=== PATIENT | male | born 1965 | race Caucasian/White ===

== ENCOUNTER 2019-08-14 08:31 | Emergency (ER) | payer MEDICARE, MEDICAID, SELFPAY ==
--- NOTE | ~2019-08-14 | XR_ITS ---
XR hip RT 2V w AP pelvis 08/14/2019 09:10 INDICATION: Right hip pain after fall PROCEDURE: AP pelvis and 2 views right hip COMPARISON: No prior studies for comparison. FINDINGS: Fracture, dislocation or subluxation is not identified. The soft tissues appear within norm al limits. No foreign bodies are identified. There is lumbar spondylosis. IMPRESSION: 1: NO ACUTE BONE OR JOINT ABNORMALITY IDENTIFIED. Reviewed, dictated and finalized at location A.
--- NOTE | ~2019-08-14 | CT_ITS ---
EXAMINATION: CT abd pelvis lumbar w con INDICATION: Right hip pain TECHNIQUE: Computed tomographic images of the abdomen, pelvis, and lumbar spine were obtained after t he administration of 100 cc of Omnipaque 350 intravenous contrast. The dose-length product (DLP) was 1617.81 mGy-cm. Automated exposure control and iterative reconstruction technique were employed. COMPARISON: None FINDINGS: Abdomen/pelvis: Minimal dependent atelectasis is present in the lung bases. The heart size is normal. The liver, spleen, pancreas, gallbladder, and adrenal glands are normal. The kidneys are unremarkabl e. No pathologically enlarged abdominal or pelvic lymph nodes are identified. There is no free intrap eritoneal gas or evidence of bowel obstruction. The appendix is normal. A moderate volume of colonic stool is present. Lumbar spine: There is no fracture. There is severe loss of intervertebral disc space height at L3-4 and L4-5 and moderate loss of intervertebral disc space height at L2-3 and L4-5. The vertebral body h eights and alignment are maintained. There is moderate neural foraminal stenosis on the right at L2-3 and L3-4. IMPRESSION: 1. No CT correlate for the patient's symptoms. 2. Severe lumbar spondylosis without acute findings. Reviewed, dictated and finalized at location B.
[2019-08-14 08:32] VITALS: BP 158/94; PULSE 97; RESP 16; TEMP 36.9; O2SAT 99
--- NOTE | 2019-08-14 08:39 | ED.LOWEXIN ---
HPI - Extremity Injury (Lower) General Chief Complaint: Extremity Injury, Lower Stated Complaint: BACK PAIN Time Seen by Provider: 08/14/19 08:38 Source: patient and RN notes reviewed Mode of arrival: EMS Limitations: no limitations History of Present Illness HPI Narrative: Pt is a 54 y/o male who presents to the ED via EMS with c/o rt posterior hip pain starting several days ago. He notes that he believes he may have tripped while getting out of his car 3-5 days ago, but states that he is unsure of when exactly the injury may have happened. Pt notes that he has had pain in his rt buttock, which radiates down his posterior rt thigh for the past several days. He states that he was evaluated by his chiropractor 2 days ago for his symptoms, and notes that he was advised to ice his rt hip and thigh. Pt states that he has been able to walk since his pain began, noting that he was able to make it down several flights of stairs earlier this morning. He currently denies any rt knee pain, calf pain, dysuria, hematuria, headache, vision changes, vomiting, CP, or fever. MD complaint: hip injury Onset (ago): unknown Injury: Right: hip (rt posterior hip) Type of Injury: unknown Context: fall Other symptoms: other (rt posterior hip pain radiating into rt posterior thigh) Related Data Home Medications Medication Instructions Recorded Confirmed buspirone 30 mg PO TID 08/14/19 clozapine 300 mg 08/14/19 divalproex 1,000 mg PO DAILY 08/14/19 simvastatin 20 mg PO DAILY 08/14/19 Allergies Allergy/AdvReac Type Severity Reaction Status Date / Time nortriptyline Allergy Unknown Vomiting Verified 08/14/19 08:38 Review of Systems Review of Systems: Narrative: CONSTITUTIONAL: Denies fever, chills, or sweats. EYES: Denies visual changes, redness, or discharge. CARDIOVASCULAR: Denies chest pain, palpitations, or edema. GASTROINTESTINAL: Denies abdominal pain, nausea, vomiting, or diarrhea. GENITOURINARY: Denies dysuria or hematuria. MUSCULOSKELETAL: Reports rt posterior hip pain radiating into rt posterior thigh. Denies rt knee pain or calf pain. NEUROLOGIC: Denies headache, numbness, or weakness. All systems reviewed & are unremarkable except as noted in HPI and below PMFSH Past Medical History Medical History Diabetes Dyslipidemia HTN (hypertension) Schizoaffective disorder Surgical History Surgical History Surgical history unknown Social History Social History Smoking status: Never smoker Exam Narrative: Exam Narrative: GENERAL: Well-appearing, obese, and in no acute distress. HEAD: Normocephalic, atraumatic. EYES: PERRLA and EOMI. ENT: Nares clear, no rhinorrhea or epistaxis. Mucous membranes moist. NECK: Supple. CHEST: Clear to auscultation. No respiratory distress. HEART: Regular rate and rhythm. No murmur heard. Normal peripheral pulses (Popliteal pulses are 2+). ABDOMEN: Soft, nontender, nondistended, normal active bowel sounds. EXTREMITIES: No edema. Tenderness over rt hip. Pain with external rotation of rt hip. No bruising or rash over rt hip. Positive right sided straight leg raise. Intact sensation distally. DP pulse 2+. Intact FHL/EHL right lower extremity. SKIN: Warm, dry, no rash. NEURO: No focal deficits. Alert and oriented. EOMs intact without nystagmus. No facial droop/asymmetry noted bilaterally. Grimace intact. Intact sensation in face. Hearing intact bilaterally. Shoulder shrug intact. Strength 5/5 bilateral upper extremities. Strength 5/5 bilateral lower extremities. Reflexes 2+ patellar. Patient is ambulatory, does require some guidance, but has no ataxia, is not falling, can ambulate independently. Course Vital Signs Vital signs: Vital Signs Temperature 36.9 C 08/14/19 08:32 Pulse Rate 97 08/14/19 08:32 Respiratory Rate 16 08/14/19 08:32 Blood Pressure 15
[2019-08-14 09:27] LABS: Basophils Percent Auto 0.6 % (0.2-1.2); Eosinophils Absolute Auto 0.2 K/mm3 (0-0.3); Eosinophils Percent Auto 2.3 % (0-4.4); Hematocrit 40.5 % (42.0-52.0); Hemoglobin 12.6 g/dL (14.0-18.0); Immature Granulocyte Absolute 0.02 K/mm3 (0.00-0.031); Immature Granulocyte Percent A 0.3 % (0-0.5); Lymphocytes Absolute Auto 1.18 K/mm3 (0.9-3.2); Lymphocytes Percent Auto 17.8 % (18.3-44.2); Mean Corpuscular HGB Conc 31.1 g/dl (32-36); Mean Corpuscular Hemoglobin 30.1 pg (26-34); Mean Corpuscular Volume 96.7 fl (80-100); Mean Platelet Volume 10.3 fl (7.4-10.4); Monocytes Absolute Auto 0.6 K/mm3 (0.1-0.6); Neutrophils Absolute Auto 4.6 K/mm3 (1.3-6.7); Platelet Count Result 155 k/mm3 (150-375); Red Blood Count 4.19 M/mm3 (4.6-6.20); Red Cell Distribution Width 13.6 % (11.5-14.5); White Blood Count 6.6 K/mm3 (4.5-10.0)
[2019-08-14 09:39] LABS: Blood Urea Nitrogen 29 mg/dL (9-20); Calcium 9.9 mg/dL (8.4-10.2); Carbon Dioxide 27 mmol/L (22-30); Chloride 107 mmol/L (98-107); Estimated CRCL calculation 60 ml/min; Estimated Glomerular Filt Rate 37; Glucose 135 mg/dL (75-110); Sodium 139 mmol/L (137-145)
[2019-08-14 09:41] LABS: Add Urine Microscopic? YES; Appearance Urine Clear (Clear); Bilirubin Urine Negative (Negative); Blood Urine Negative (Negative); Color Urine Yellow (Yellow); Glucose Urine UA Negative (Negative); Ketones Urine Negative (Negative); Leukocyte Esterase Ur Negative LEU/UL (Negative); Mucus Urine Rare /lpf; Nitrate Urine Negative (Negative); Protein Urine 1+ mg/dL (Negative); RBC Urine 0-2 /hpf (0-2); Specific Grav Ur 1.016 (1.001-1.035); Squamous Epithelial Cell Urine Rare /hpf (Few); WBC Urine 0-3 /hpf
[2019-08-14 09:48] LABS: CRP 8.9 mg/dL (<1.0)
--- NOTE | 2019-08-14 09:53 | PC.NURSE ---
Offered pt cleaned soapy rags to clean up. Pt declined. Encouraged pt to do it due to his odor of urine. Pt continued to decline
[2019-08-14 10:12] LABS: Erythrocyte Sedimentation Rate 62 mm/hr (0-20)
[2019-08-14 10:13] VITALS: BP 161/95; PULSE 84; RESP 16; O2SAT 99
[2019-08-14 11:15] VITALS: BP 158/105; PULSE 89; RESP 23; O2SAT 99
--- NOTE | 2019-08-14 11:24 | PC.NURSE ---
Pt attempted ambulation w 2 person assist, unsuccessful - EDP Dr Zapata aware.
[2019-08-14] MEDS: KETOROLAC 15 MG/ML VIAL (*BKC) IV PUSH (11:40)
[2019-08-14] MEDS: DIAZEPAM 5 MG TABLET PO (11:40)
[2019-08-14] MEDS: SODIUM CHLORIDE 0.9% IV 1,000 ML 999 ML IV CONT (11:43)
[2019-08-14 11:52] LABS: Creatine Kinase 246 U/L (55-170)
[2019-08-14] MEDS: LIDOCAINE 5% PATCH 1 PATCH TRANSDERM (12:01)
--- NOTE | 2019-08-14 12:05 | PC.NURSE ---
spoke with CONTRERAS Zapata who is requesting the pt attempt to ambulate again, I reminded CONTRERAS that pt had a difficult time attempting earlier and it took x2 staff members just to get his legs out of bed, and that pt was unable to ambulate. CONTREARS states she wants pt ambulated at this time, not to wait.
[2019-08-14 12:18] VITALS: BP 163/101; PULSE 96; RESP 17; O2SAT 97
--- NOTE | 2019-08-14 12:19 | PC.NURSE ---
Pt ambulated to RR w/ 2 person guided assist. Pt moved slowly and was able to get self in and out of stretcher.
[2019-08-14 13:28] VITALS: BP 150/97; PULSE 98; RESP 18; O2SAT 100
== END 2019-08-14 13:30 | disposition home or self-care (01) ==
PROVIDERS: Emergency Provider Emergency Medicine; PCP Emergency Medicine
DX: M54.31 Sciatica, right side (principal); E11.9 Type 2 diabetes mellitus without complications; E78.5 Hyperlipidemia, unspecified; I10 Essential (primary) hypertension; F25.9 Schizoaffective disorder, unspecified; M47.816 Spondylosis without myelopathy or radiculopathy, lumbar region
CPT/HCPCS: 36415; 72132; 73502; 73521; 74177; 80048; 81001; 82550; 85025; 85652; 86140; 96361; 96374; 99284; A9270; J1885; J7030; Q9967

== ENCOUNTER 2019-09-28 09:25 | Emergency (ER) | payer MEDICARE, MEDICAID, SELFPAY ==
[2019-09-28 09:39] VITALS: BP 93/48; PULSE 102; RESP 18; TEMP 36.7; O2SAT 96
--- NOTE | 2019-09-28 11:43 | ED.BACK ---
HPI - Back Pain/Injury General Chief Complaint: Back Pain/Injury Stated Complaint: worsening chronic back pain Time Seen by Provider: 09/28/19 11:09 History of Present Illness HPI Narrative: Patient presents per private car for low back pain and right sciatica. He has been treated for this for years. He said it was so bad that he could not get off the floor this morning when he woke up. He had to call EMS to help stand him up. His only medication right now is Tylenol which he finished. He said it did not help. He sees a chiropractor on a regular basis. He was referred to a surgeon, but could not get through the intake process. He has schizoaffective, and gets his disability for that. He is no longer on lithium. He is allergic to Pamelor. He lives with a roommate in an apartment. He drives. He speaks in really long sentences with an abnormal amount of minute detail, that is quite unnecessary for the interview. He is polite. MD elicited complaint: back pain Pertinent past history: prior back pain Onset (ago): year(s) Timing: intermittent Severity: moderate Pain scale (0-10): 6 Similar Symptoms Previously: Yes Location: lumbar spine Radiation: right upper leg Exacerbating factors: movement and other (Hurts worse with going from a laying or sitting position to standing.) Relieving factors: none Work related injury: No Related Data Home Medications Medication Instructions Recorded Confirmed buspirone 30 mg PO TID 08/14/19 clozapine 300 mg 08/14/19 divalproex 1,000 mg PO DAILY 08/14/19 simvastatin 20 mg PO DAILY 08/14/19 lisinopril 10 mg PO DAILY 09/28/19 Allergies Allergy/AdvReac Type Severity Reaction Status Date / Time nortriptyline Allergy Unknown Vomiting Verified 09/28/19 09:36 Review of Systems Review of Systems: Narrative: CONSTITUTIONAL: Denies fever, chills, or sweats. EYES: Denies visual changes, redness, or discharge. ENT: Denies rhinorrhea, congestion, sore throat, or otalgia. CARDIOVASCULAR: Denies chest pain, palpitations, or edema. RESPIRATORY: Denies cough or dyspnea. GASTROINTESTINAL: Denies abdominal pain, nausea, vomiting, or diarrhea. GENITOURINARY: Denies dysuria or hematuria. SKIN: Denies rash or itching. MUSCULOSKELETAL: Denies joint pain, or myalgia. NEUROLOGIC: Denies headache, numbness, or weakness. PSYCHIATRIC: Denies anxiety or depression. [facility] Past Medical History Medical History Diabetes Dyslipidemia HTN (hypertension) Schizoaffective disorder Surgical History Surgical History Surgical history unknown Social History Social History Smoking status: Never smoker Gender identity (if verbalized by the patient): Male Exam Narrative: Exam Narrative: GENERAL: Morbid obesity, slow-moving. No acute distress HEAD: Normocephalic, atraumatic. EYES: PERRLA and EOMI. ENT: Nares clear, no rhinorrhea or epistaxis. Mucous membranes moist. NECK: Supple. CHEST: Clear to auscultation. No respiratory distress. HEART: Regular rate and rhythm. No murmur heard. Normal peripheral pulses. ABDOMEN: Soft, nontender, nondistended, normal active bowel sounds. EXTREMITIES: No edema. SKIN: Warm, dry, no rash. NEURO: No focal deficits. Alert and oriented x3. Straight leg raising positive on the right. Reflexes slow. PSYCH: Normal mood and affect. Really long sentences. Course Vital Signs Vital signs: Vital Signs Temperature 98.1 F 09/28/19 09:39 Pulse Rate 102 H 09/28/19 09:39 Respiratory Rate 18 09/28/19 09:39 Blood Pressure 93/48 L 09/28/19 09:39 Pulse Oximetry 96 09/28/19 09:39 Temperature 98.1 F 09/28/19 09:39 Pulse Rate 102 H 09/28/19 09:39 Respiratory Rate 18 09/28/19 09:39 Blood Pressure 93/48 L 09/28/19 09:39 Pulse Oximetry 96 09/28/19 09:39 Discharge Plan Discharge Clinical Impres
[2019-09-28] MEDS: KETOROLAC (*BKC) 60 MG/2 ML VIAL 30 MG IM (11:46)
== END 2019-09-28 12:08 | disposition home or self-care (01) ==
PROVIDERS: Emergency Provider Emergency Medicine; PCP Emergency Medicine
DX: M54.16 Radiculopathy, lumbar region (principal); E11.9 Type 2 diabetes mellitus without complications; R78.5 Finding of other psychotropic drug in blood; I10 Essential (primary) hypertension; F25.9 Schizoaffective disorder, unspecified; M54.41 Lumbago with sciatica, right side
CPT/HCPCS: 96372; 99283; J1885

== ENCOUNTER 2019-10-24 00:40 | Outpatient (NON) | payer MEDICARE, MEDICAID, SELFPAY ==
[2019-10-25 12:55] LABS: SARS-CoV-2 RNA PCR Negative
== END 2019-10-24 00:41 ==
PROVIDERS: PCP Emergency Medicine; Visit Provider Emergency Medicine
DX: Z20.828 Contact with and (suspected) exposure to other viral communicable diseases (principal)
CPT/HCPCS: 87635; C9803; U0003

== ENCOUNTER 2019-11-02 17:04 | Emergency (ER) | payer MEDICARE, MEDICAID, SELFPAY ==
--- NOTE | ~2019-11-02 | XR_ITS ---
EXAMINATION: XR chest 1V portable DATE: 11/02/2019 18:00 INDICATION: Fever and cough. TECHNIQUE: A single frontal view of the chest was obtained. COMPARISON: CT abdomen and pelvis 08/14/2019 FINDINGS: Again seen is mild elevation of right hemidiaphragm. No pneumonia, pleural effusion, or pne umothorax. The heart size is normal. IMPRESSION: 1. No acute cardiopulmonary disease. Reviewed, dictated and finalized at location A.
[2019-11-02 17:09] VITALS: BP 131/89; PULSE 105; RESP 18; TEMP 37.8; O2SAT 98
[2019-11-02] MEDS: SODIUM CHLORIDE 0.9% IV 1,000 ML 999 ML IV CONT ×2 (17:49→19:49)
[2019-11-02 18:20] LABS: Basophils Percent Auto 0.4 % (0.2-1.2); Eosinophils Absolute Auto 0.1 K/mm3 (0-0.3); Eosinophils Percent Auto 1.9 % (0-4.4); Hematocrit 39.8 % (42.0-52.0); Hemoglobin 12.8 g/dL (14.0-18.0); Immature Granulocyte Absolute 0.02 K/mm3 (0.00-0.031); Immature Granulocyte Percent A 0.3 % (0-0.5); Immature Platelet Fraction Pct 1.5 % (0.9-11.2); Lymphocytes Absolute Auto 1.24 K/mm3 (0.9-3.2); Lymphocytes Percent Auto 17.7 % (18.3-44.2); Mean Corpuscular HGB Conc 32.2 g/dl (32-36); Mean Corpuscular Hemoglobin 30.8 pg (26-34); Mean Corpuscular Volume 95.7 fl (80-100); Monocytes Absolute Auto 0.8 K/mm3 (0.1-0.6); Monocytes Percent Auto 10.7 % (2.6-8.5); Neutrophils Absolute Auto 4.8 K/mm3 (1.3-6.7); Platelet Count Result 145 k/mm3 (150-375); Red Blood Count 4.16 M/mm3 (4.6-6.20); Red Cell Distribution Width 13.8 % (11.5-14.5)
[2019-11-02 18:28] LABS: Prothrombin Time 13.1 Seconds (11.1-14.7)
[2019-11-02 18:29] LABS: Partial Thromboplastin Time 29.3 SECONDS (22.3-36.8)
[2019-11-02 18:31] LABS: Lactic Acid Reflex 1.7 mmol/L (0.7-2.1)
[2019-11-02 18:33] LABS: Alanine Aminotransferase 11 U/L (4-50); Albumin Level 4.3 g/dL (3.5-5.1); Alkaline Phosphatase 106 U/L (38-126); Aspartate Amino Transferase 18 U/L (17-59); Bilirubin,Total 0.7 mg/dL (0.2-1.3); Blood Urea Nitrogen 26 mg/dL (9-20); CRP 7.9 mg/dL (<1.0); Calcium 9.7 mg/dL (8.4-10.2); Carbon Dioxide 23 mmol/L (22-30); Chloride 108 mmol/L (98-107); Estimated CRCL calculation 62 ml/min; Estimated Glomerular Filt Rate 39; Glucose 153 mg/dL (75-110); Potassium 4.6 mmol/L (3.4-5.0); Sodium 140 mmol/L (137-145)
[2019-11-02 18:46] LABS: Erythrocyte Sedimentation Rate 28 mm/hr (0-20)
[2019-11-02 19:02] LABS: Creatine Kinase 150 U/L (55-170)
[2019-11-02] MEDS: SODIUM CHLORIDE 0.9% IV 500 ML 999 ML IV CONT (19:30)
[2019-11-02 19:34] VITALS: TEMP 37.4
[2019-11-02 19:38] VITALS: BP 129/90; PULSE 94; RESP 15; TEMP 37.4; O2SAT 99
--- NOTE | 2019-11-02 19:50 | ED.GENADULT ---
HPI - General Adult General Chief complaint: Back Pain/Injury <Jesús James PA-C - Last Filed: 11/02/19 19:55> Stated complaint: BACK SPASMS <Jesús James PA-C - Last Filed: 11/02/19 19:55> Source: patient <Jesús James PA-C - Last Filed: 11/02/19 19:55> Mode of arrival: EMS <Jesús James PA-C - Last Filed: 11/02/19 19:55> Limitations: no limitations <Jesús James PA-C - Last Filed: 11/02/19 19:55> History of Present Illness HPI narrative: Patient is a 54-year-old male who presents to emergency department for reported low back pain noted as spasms worse on the right denies injury trauma or radicular symptoms have been seen in July with similar symptoms but now has had worsening scenario where he was unable to get off the floor today and EMS had to lift him and help him. Patient notes weakness of the legs which is new and worsening. Patient denies any bladder or bowel incontinence or any saddle anesthesia. Patient denies any URI symptoms sick contacts or other sources for infection. Patient has not had anything for his symptoms <Jesús James PA-C - Last Filed: 11/02/19 19:55> Related Data Home medications: Home Medications Medication Instructions Recorded Confirmed buspirone 30 mg PO TID 08/14/19 clozapine 300 mg HS 08/14/19 divalproex 1,000 mg PO HS 08/14/19 simvastatin 20 mg PO HS 08/14/19 <Jesús James PA-C - Last Filed: 11/02/19 19:55> Allergies/adverse reactions: Allergies Allergy/AdvReac Type Severity Reaction Status Date / Time nortriptyline AdvReac Unknown Vomiting Verified 11/02/19 17:16 <Jesús James PA-C - Last Filed: 11/02/19 19:55> Review of Systems Review of Systems: All systems reviewed & are unremarkable except as noted in HPI and below <Jesús James PA-C - Last Filed: 11/02/19 19:55> [facility] Past Medical History Medical History: Medical History Diabetes Dyslipidemia HTN (hypertension) Schizoaffective disorder <Jesús James PA-C - Last Filed: 11/02/19 19:55> Surgical History Surgical History: Surgical History Surgical history unknown <Jesús James PA-C - Last Filed: 11/02/19 19:55> Social History Social History: Social History Smoking status: Never smoker Gender identity (if verbalized by the patient): Male <Jesús James PA-C - Last Filed: 11/02/19 19:55> Exam Narrative: Exam Narrative: GENERAL: Ill-appearing, obese, and in no acute distress. HEAD: Normocephalic, atraumatic. EYES: PERRLA and EOMI. ENT: Nares clear, no rhinorrhea or epistaxis. Mucous membranes moist. Oropharynx without tonsillar hypertrophy exudate or other lesions. CHEST: Clear to auscultation. No respiratory distress. No wheezes rales or rhonchi HEART: Regular rate and rhythm. No murmur heard. Normal peripheral pulses. ABDOMEN: Soft, nontender, nondistended EXTREMITIES: Patient with tenderness of the lumbar spine no deformities noted. Patient with difficulty with lifting and performing motor of the bilateral lower extremities. SKIN: Warm, dry, no rash. NEURO: No focal deficits. Alert and oriented x3. Neurovascularly intact. Sensory intact and symmetrical in the lower extremities PSYCH: Normal mood and affect. <Jesús James PA-C - Last Filed: 11/02/19 19:55> Course SPRINKLER DRIVER/PA Physician Supervision For this patient encounter, I reviewed the SPRINKLER DRIVER or PA documentation, treatment plan, and medical decision making; and I had [id number]-[id number] time with this patient. <Shanna Olmos MD - Last Filed: 11/05/19 07:03> Consultations Consultation #1: Discussed case with neurosurgery and ER attending at [facility] who have accepted the patient for transfer <Jesús James PA-C - Last Filed: 11/02/19 19:55> Giorgi
--- NOTE | 2019-11-02 19:58 | PC.NURSE ---
Called [facility] to transport to [facility]...ETA 30 minutes.
[2019-11-02 19:59] LABS: Add Urine Microscopic? YES; Appearance Urine Clear (Clear); Bacteria Urine Trace /hpf; Bilirubin Urine Negative (Negative); Blood Urine Negative (Negative); Color Urine Yellow (Yellow); Glucose Urine UA Negative (Negative); Ketones Urine Negative (Negative); Leukocyte Esterase Ur Negative LEU/UL (Negative); Mucus Urine Rare /lpf; Nitrate Urine Negative (Negative); Protein Urine 2+ mg/dL (Negative); RBC Urine 0-2 /hpf (0-2); Specific Grav Ur 1.016 (1.001-1.035); Squamous Epithelial Cell Urine Rare /hpf (Few); Urobilinogen Urine Negative mg/dL (<2.0); WBC Urine 0-3 /hpf
[2019-11-02 21:00] VITALS: BP 168/99; PULSE 87; RESP 15; TEMP 37.7; O2SAT 100
== END 2019-11-02 21:19 | disposition short-term general hospital (02) ==
PROVIDERS: Emergency Medicine Emergency Medical Services; Emergency Provider General Practice; PCP Emergency Medicine
DX: M54.5 Low back pain (principal); R50.9 Fever, unspecified; E11.9 Type 2 diabetes mellitus without complications; I10 Essential (primary) hypertension; E78.5 Hyperlipidemia, unspecified; F25.9 Schizoaffective disorder, unspecified
CPT/HCPCS: 36415; 71045; 80053; 81001; 82550; 83605; 85025; 85055; 85610; 85652; 85730; 86140; 87040; 96361; 96374; 99285; J0131; J7030; J7040

== ENCOUNTER 2020-01-10 13:45 | Inpatient (IN) | payer MEDICARE, MEDICAID, SELFPAY ==
--- NOTE | ~2020-01-10 | XR_ITS ---
EXAMINATION: XR knee LT 3V EXAM DATE: 01/10/2020 14:52 INDICATION: Initial encounter following injury, with pain of the left knee. TECHNIQUE: Three projections of the left knee. There is no prior study for comparison. FINDINGS: No evidence osteochondral defect or joint body in the left knee joint. There is mild prim jessica osteoarthritis. No joint effusion. Small patellar enthesopathy. There are no acute fractures or dislocations identified. There is no subcutaneous gas. The soft tissue is unremarkable. There are no radiopaque foreign bodies. IMPRESSION: 1. XR knee LT 3V exam without acute osseous findings. Reviewed, dictated and finalized at location B.
--- NOTE | ~2020-01-10 | XR_ITS ---
EXAMINATION: XR foot LT 2V DATE: 01/11/2020 16:58 INDICATION: Left foot pain and swelling TECHNIQUE: Dorsoplantar and lateral views of the left foot were obtained. COMPARISON: None. FINDINGS: Alignment is normal. Old healed fracture deformity at the left fifth proximal phalanx. No acute fract ure. Mild polyarticular osteoarthritis in the mid and forefoot. No interval change in a chronic lucen cy with thin sclerotic margins at the base of the fourth metatarsal which could represent a degenerat clarissa subchondral cyst or chronic erosion. Moderate-sized Achilles and plantar calcaneal spurs. Additio nal smaller enthesophytes at the tip of the lateral malleolus and at the lateral base of the fifth me tatarsal. Diffuse soft tissue swelling over the dorsum of the foot. IMPRESSION: 1. No acute osseous abnormality. 2. Chronic degenerative changes including mild polyarticular osteoarthritis and scattered enthesophyt es. Reviewed, dictated and finalized at location A. IMPRESSION: 1. No acute osseous abnormality. 2. Chronic degenerative changes including mild polyarticular osteoarthritis and scattered enthesophytes.
--- NOTE | ~2020-01-10 | XR_ITS ---
EXAMINATION: XR chest 1V portable 01/13/2020 22:34 INDICATION: Fever PROCEDURE: AP portable chest COMPARISON: Comparison to multiple prior studies sequentially, with oldest reviewed study dated 11/01. FINDINGS: Right basilar infiltrates may represent atelectasis or developing pneumonia. The cardiomedi astinal silhouette is within normal limits. There are no pleural effusions. There is no pneumothora x suspected. IMPRESSION: 1: Right basilar infiltrates, atelectasis versus pneumonia. Reviewed, dictated and finalized at location A.
--- NOTE | ~2020-01-10 | XR_ITS ---
EXAMINATION: XR ankle LT min 3V EXAM DATE: 01/10/2020 14:50 INDICATION: Fall versus chronic pain anteriorly. TECHNIQUE: Left ankle frontal, lateral and oblique projections obtained and reviewed. Comparison is m carlos to prior examination from 03/27/2018. FINDINGS: The left ankle mortise appears intact. There are no acute fractures or dislocations ident ified. There is no subcutaneous gas. There is soft tissue swelling over the ankle. There are no ra diopaque foreign bodies. Small inferior and posterior calcaneal spurs. There is mild polyarticular p rimary osteoarthritis. IMPRESSION: 1. Soft tissue swelling. 2. Mild polyarticular osteoarthritis. Reviewed, dictated and finalized at location B.
--- NOTE | ~2020-01-10 | US_ITS ---
EXAMINATION: US venous doppler [facility] DATE: 01/10/2020 17:35 INDICATION: Left lower limb pain TECHNIQUE: Grayscale ultrasound images without and with compression and Doppler ultrasound images of the bilateral lower extremity veins were obtained. COMPARISON: None. FINDINGS: Noncompressible occlusive thrombus in the right popliteal vein. The visualized portions of right comm on femoral vein, profunda (deep) femoral vein, femoral vein, posterior tibial veins, peroneal veins, gastrocnemius vein and greater saphenous vein outflow are patent. The left popliteal vein is partially compressible with nonocclusive thrombus which extends into the l eft lesser saphenous vein. The visualized portions of left common femoral vein, profunda femoral vein , femoral vein, posterior tibial veins, peroneal veins, gastrocnemius vein and greater saphenous vein outflow are patent. 6.1 x 2.4 x 2.3 cm Ambrose cyst at the left popliteal fossa. IMPRESSION: 1. Deep venous necrosis at the bilateral popliteal veins and left lesser saphenous vein. 2. Moderate-sized left Ambrose's cyst. Reviewed, dictated and finalized at location A. IMPRESSION: 1. Deep venous necrosis at the bilateral popliteal veins and left lesser saphen ous vein. 2. Moderate-sized left Ambrose's cyst.
--- NOTE | ~2020-01-10 | XR_ITS ---
EXAMINATION: XR chest 1V portable EXAM DATE: 01/10/2020 14:52 INDICATION: Fall, left ankle swelling and tenderness. TECHNIQUE: Portable AP frontal chest x-ray was obtained. Comparison is made to prior examination from 11/02/2019. FINDINGS: The lungs are clear. There are no pleural effusions. The cardiomediastinal silhouette is within normal limits. There is no pneumothorax suspected. The bones and soft tissues are unremarkab le. IMPRESSION: No acute cardiopulmonary findings. Reviewed, dictated and finalized at location B.
[2020-01-10 13:39] VITALS: BP 158/104; PULSE 97; RESP 16; TEMP 37.3; O2SAT 97
--- NOTE | 2020-01-10 14:18 | ED.GENADULT ---
HPI - General Adult General Chief complaint: Extremity Injury, Lower Stated complaint: L ANKLE PAIN Source: patient and EMS Mode of arrival: EMS Limitations: no limitations History of Present Illness HPI narrative: 54 years old white male presents with pain at the feet and ankles mainly left 1 started 4 days ago. Patient denies any trauma. Patient unable to put weight on his feet. Patient denies any fever, chills, nausea, vomiting, coughing, shortness of breath, chest pain. Patient denies similar symptoms. Patient under psych care, history of multiple falls for months, patient lives alone, history of urinary incontinence for at least 6 months, does not wear depends, history of chronic lower back pain, does go to A chiropractor, the pain is not worse than before. Related Data Home Medications Medication Instructions Recorded Confirmed buspirone 30 mg PO TID 08/14/19 clozapine 300 mg HS 08/14/19 divalproex 1,000 mg PO HS 08/14/19 simvastatin 20 mg PO HS 08/14/19 Allergies Allergy/AdvReac Type Severity Reaction Status Date / Time acetaminophen Allergy Unknown Verified 01/10/20 13:48 [From Panlor (hydrocodone-acetamin)] hydrocodone Allergy Unknown Verified 01/10/20 13:48 [From Panlor (hydrocodone-acetamin)] nortriptyline AdvReac Unknown Vomiting Verified 01/10/20 13:48 Review of Systems Review of Systems: Narrative: CONSTITUTIONAL: Denies fever, chills, or sweats. EYES: Denies visual changes, redness, or discharge. ENT: Denies rhinorrhea, congestion, sore throat, or otalgia. CARDIOVASCULAR: Denies chest pain, palpitations, or edema. RESPIRATORY: Denies cough or dyspnea. GASTROINTESTINAL: Denies abdominal pain, nausea, vomiting, or diarrhea. GENITOURINARY: Denies dysuria or hematuria. SKIN: Denies rash or itching. MUSCULOSKELETAL: Denies back pain, joint pain, or myalgia. NEUROLOGIC: Denies headache, numbness, or weakness. PSYCHIATRIC: Denies anxiety or depression. [facility] Past Medical History Medical History Diabetes Dyslipidemia HTN (hypertension) Schizoaffective disorder Surgical History Surgical History Surgical history unknown Social History Social History Smoking status: Never smoker Gender identity (if verbalized by the patient): Male Exam Narrative: Exam Narrative: General appearance: Well-developed, well-nourished, obese, patient laying down in bed, with wet pants Skin: Normal color Head: Normocephalic, nontraumatic Eyes: Clear conjunctiva ENT: Oropharynx normal, ears normal, nose normal Neck: Supple, nontender Chest and respiratory: Airway patent, no respiratory distress, no accessory muscle use Heart: Regular rate/rhythm Abdomen: Soft, nontender, no organomegaly, quiet bowel sounds Vascular: Normal peripheral pulses, normal capillary refill. Musculoskeletal: Diffuse tenderness about the ankle bilaterally, more on the left side, swollen, no warmth, no erythema Neurologic: Alert and oriented ?3, [employer] is normal as tested, no gross motor deficit Course Course Emergency Course: Stable Vital Signs Vital signs: Vital Signs Temperature 37.3 C 01/10/20 13:39 Pulse Rate 97 01/10/20 13:39 Respiratory Rate 16 01/10/20 13:39 Blood Pressure 158/104 H 01/10/20 13:39 Pulse Oximetry 97 01/10/20 13:39 Temperature 37.3 C 01/10/20 13:39 Pulse Rate 97 01/10/20 13:39 Respiratory Rate 16 01/10/20 13:39 Blood Pressure 158/104 H 01/10/20 13:39 Pulse Oximetry 97 01/10/20 13:39 Medical Decision Making MDM Narrative
--- NOTE | 2020-01-10 15:06 | PC.NURSE ---
asked pt for urine sample, left urinal at bedside
[2020-01-10 15:15] LABS: Basophils Percent Auto 0.5 % (0.2-1.2); Eosinophils Absolute Auto 0.2 K/mm3 (0-0.3); Eosinophils Percent Auto 2.1 % (0-4.4); Hematocrit 38.9 % (42.0-52.0); Hemoglobin 12.7 g/dL (14.0-18.0); Immature Granulocyte Absolute 0.02 K/mm3 (0.00-0.031); Immature Granulocyte Percent A 0.2 % (0-0.5); Lymphocytes Absolute Auto 1.14 K/mm3 (0.9-3.2); Mean Corpuscular HGB Conc 32.6 g/dl (32-36); Mean Corpuscular Hemoglobin 30.2 pg (26-34); Mean Corpuscular Volume 92.4 fl (80-100); Mean Platelet Volume 9.2 fl (7.4-10.4); Monocytes Absolute Auto 0.8 K/mm3 (0.1-0.6); Neutrophils Percent Auto 73.2 % (45.5-73.1); Platelet Count Result 225 k/mm3 (150-375); Red Blood Count 4.21 M/mm3 (4.6-6.20); Red Cell Distribution Width 13.4 % (11.5-14.5); White Blood Count 8.2 K/mm3 (4.5-10.0)
[2020-01-10 15:21] LABS: Alanine Aminotransferase 8 U/L (4-50); Albumin Level 4.2 g/dL (3.5-5.1); Alkaline Phosphatase 98 U/L (38-126); Anion Gap 9 mmol/L (8-16); Aspartate Amino Transferase 17 U/L (17-59); Bilirubin,Total 0.6 mg/dL (0.2-1.3); Blood Urea Nitrogen 34 mg/dL (9-20); CRP 8.7 mg/dL (<1.0); Calcium 9.8 mg/dL (8.4-10.2); Carbon Dioxide 23 mmol/L (22-30); Chloride 109 mmol/L (98-107); Estimated CRCL calculation 67 ml/min; Estimated Glomerular Filt Rate 42; Glucose 124 mg/dL (75-110); Potassium 4.4 mmol/L (3.4-5.0); Sodium 141 mmol/L (137-145)
[2020-01-10 15:45] LABS: Add Urine Microscopic? YES; Appearance Urine Clear (Clear); Bilirubin Urine Negative (Negative); Blood Urine Negative (Negative); Color Urine Yellow (Yellow); Glucose Urine UA Negative (Negative); Ketones Urine Negative (Negative); Leukocyte Esterase Ur Negative LEU/UL (Negative); Nitrate Urine Negative (Negative); Protein Urine 2+ mg/dL (Negative); RBC Urine 0-2 /hpf (0-2); Specific Grav Ur 1.015 (1.001-1.035); Urobilinogen Urine Negative mg/dL (<2.0); WBC Urine 0-3 /hpf
[2020-01-10 15:50] LABS: Erythrocyte Sedimentation Rate 59 mm/hr (0-20)
[2020-01-10 16:48] LABS: Amphetamine Screen Urine Negative (Negative); Barbiturate Screen Urine Negative (Negative); Benzodiazepines Screen Urine Negative (Negative); Cannabinoid Screen Urine Negative (Negative); Cocaine Screen Urine Negative (Negative); Methadone Screen Urine Negative (Negative); Opiate Screen Urine Negative (Negative); Phencyclidine Screen Urine Negative (Negative)
[2020-01-10] MEDS: KETOROLAC 30 MG/ML VIAL (*BKC) IV PUSH (17:00)
[2020-01-10 17:04] VITALS: BP 147/57; PULSE 58; RESP 18; O2SAT 98
--- NOTE | 2020-01-10 17:25 | PC.NURSE ---
Pt in ultrasound at this time
[2020-01-10 17:47] VITALS: BP 153/87; PULSE 95; RESP 18; O2SAT 97
--- NOTE | 2020-01-10 18:02 | PC.NURSE ---
This patient, José Miguel Henderson, was admitted to Medical Room 248-. Patient/family oriented to hospital policies and general routines including ID bracelet, bed and alarms, visiting hours, pain management, procedures, bathroom and other care routines, personal items, smoking policy, room service/diet, and visiting hours. Valuables list has been completed. Information on how to activate the Rapid Response Team has been discussed. Patient/Family are encouraged to report perceived risks to care and to ask questions if they do not understand what they are told or what they should do.
[2020-01-10] MEDS: SODIUM CHLORIDE 0.9% IV 1,000 ML 125 ML IV CONT (18:10)
[2020-01-10] MEDS: APIXABAN 5 MG TABLET 10 MG PO (18:14)
--- NOTE | 2020-01-10 19:25 | PM.IMHP ---
H&P: HPI History of Present Illness Date/Time: 01/10/20 19:25 Chief complaint: Left ankle pain. Narrative: José Miguel Henderson is a 54-year-old male with hypertension, hyperlipidemia, chronic kidney disease, chronic anemia, sleep apnea, and schizoaffective disorder who presented to the emergency department earlier today via EMS from home for evaluation of left ankle pain. The patient states he woke up on Monday with swelling and pain in his left ankle, similar to when he has sprained his ankle in the past, however he does not recall injuring himself. He has a difficult time describing the pain but reports the inability to put any weight on that foot due to pain. Today the ankle was so swollen that he could not get his shoes on and he called 911. He was found to have bilateral lower extremity DVTs at the popliteal level and is being admitted in this setting, as the emergency department physician did not feel that he was safe to go home given his inability to bear weight. It is somewhat difficult to get a current history from the patient, as he has frequent tangential and circumferential thoughts, frequently reverting to his high school and college years. For example, he reports being very active however describes activities that he did as a young man. Apparently he used to go to the gym however has been close due to COVID-19 and it sounds like he is pretty sedentary now. He has no history DVT and denies recent travel and history of malignancy. No on intentional weight loss. He has never had colon polyps and does not believe his PSA has ever been elevated. At the time my evaluation he has no complaints and specifically denies chest pain, pleuritic pain, orthopnea, PND, nausea, vomiting, and sweats. Review of Systems Review of Systems: Narrative: Twelve systems were reviewed with pertinent positives and negatives as per HPI. He is frequently tired, even if he sleeps 8+ hours a day, and he is wondering if maybe he needs to start wearing his CPAP again. After a nearly 100 lb weight loss he was able to come off of the CPAP. He was also able to come off of his diabetes medications. No fever, chills, or sweats. No recent cold or flu symptoms. He denies nausea, vomiting, and diarrhea. No dysuria or hematuria. He does have urinary frequency and incontinence at times, more over the last 6 months. With further questioning it sounds like he does have a decreased urine stream and occasional dribbling, however he for believes that he is able to completely evacuate his bladder. No diarrhea or constipation. He spends a lot of time talking about a book that he is reading, which tells him what he should eat according to his blood type. He has not had blood or mucus in the stool. No bowel incontinence. He denies saddle anesthesia, focal weakness, and paresthesias. He was suffering from right-sided sciatica but had an adjustment with his chiropractor a week or so ago, not has since resolved.bending Except as documented, all other systems were reviewed and are negative. [facility] Past Medical History Medical History (Updated 01/10/20 @ 23:12 by Carly Giron PA-C) Anxiety Chronic anemia Chronic kidney disease, stage 3 Baseline creatinine is between 1.7 and 1.90. Chronic lower back pain He frequently sees his chiropractor, which offers him a lot of benefit. Diet-controlled type 2 diabetes mellitus Dyslipidemia Essential hypertension Obstructive sleep apnea No longer using CPAP after weight loss. Schizoaffective disorder Surgical History Surgical History (Updated 01/10/20 @ 23:06 by Carly Giron PA-C) History of tonsillectomy and adenoidectomy Family History Family History (Updated 01/10/20 @ 23:06 by Carly Giron PA-C) Other Unknown family medical history Social History Social History (Updated 01/10/20 @ 23:07 by Carly Giron PA-C) Social History: Surrogate decision maker: Manpreet Henderson, nephew. Code status:
[2020-01-10 19:38] VITALS: BP 144/86; PULSE 92; RESP 19; TEMP 36.9; O2SAT 98; BMI 39.4
[2020-01-10 20:00] VITALS: BP 139/91; PULSE 85; RESP 20; TEMP 36.3; O2SAT 99
[2020-01-10] MEDS: SIMVASTATIN 20 MG TABLET PO (23:46)
[2020-01-10] MEDS: busPIRone HCL 10 MG TABLET 30 MG PO (23:46)
[2020-01-10] MEDS: DIVALPROEX SODIUM ER 500 MG TAB 1000 MG PO (23:47)
--- NOTE | 2020-01-11 | ECHO_ITS ---
Patient Info Name: José Miguel Henderson Age: 54 years : 1965 Gender: Male Ht: 74 in Wt: 300 lbs BSA: 2.72 m2 HR: 91 bpm BP: 112 / 64 mmHg Technical Quality: Fair Exam Date: 01/11/2020 8:46 AM Exam Location: [facility] Patient Status: Inpatient Admit Date: 01/10/2020 Staff Ordering Physician: Carly Giron PA-C Credit Risk Modeler: Nicolle Lozano RDCS Attending Provider: Natalie Cook PA-C Referring Physician: Mack QUINN; Exam Type: CA echo dop color flow w con Contrast/Agitated Saline Contrast/Ag. Saline: Definity Amount: 2.00 ml Summary 1. Normal LV size, mild LVH, hyperdynamic LV systolic function, ejection fraction more than 70%; grade 1 diastolic dysfunction. Normal mitral valve, no significant MR. Aortic valve not well visualized. No hemodynamically significant stenosis by Doppler. Unable to assess RVSP due to inadequate TR jet. Normal sinus rhythm. Left Ventricle Left ventricular chamber dimension is normal. Left ventricular systolic function is normal, estimated at >70%. There is mildly increased left ventricular wall thickness. Left ventricular septal wall motion is normal. The left ventricular diastolic function is grade I diastolic dysfunction. Right Ventricle Right ventricular chamber dimension is normal. Right ventricular systolic function is normal. Left Atria Left atrial chamber dimension is normal. Right Atria Right atrial chamber dimension is normal. Aortic Valve The aortic valve is not well visualized. There is no aortic valve stenosis. There is no aortic valve regurgitation. Pulmonic Valve The pulmonic valve is not well visualized. There is mild pulmonic regurgitation. Mitral Valve The mitral valve has normal leaflets. There is no mitral valve stenosis. There is no mitral valve regurgitation. Tricuspid Valve The tricuspid valve leaflets are normal. There is trace tricuspid valve regurgitation. Pericardium/Pleural The pericardium appears normal. There is no pericardial effusion. Aorta The aortic root size at the sinus of Valsalva is normal. The prox ascending aorta size is normal. Left Ventricular Outflow Tract Name Value Normal LVOT 2D LVOT Diameter 2.19 cm LVOT Doppler LVOT Peak Gradient 6 mmHg LVOT Mean Gradient 3 mmHg LVOT VTI 19.53 cm LVOT VTI/AV VTI Ratio 0.85 LVOT Stroke Volume 73.80 ml LVOT CO 6.38 l/min LVOT CI 2.35 L/min/m2 Pulmonic Valve Name Value Normal PV Doppler PV Peak Gradient 6 mmHg Mitral Valve Name
--- NOTE | 2020-01-11 00:51 | PCRCNOTE ---
Pt refused CPAP, states he does not wear it at home.
[2020-01-11 04:00] VITALS: BP 112/64; PULSE 83; RESP 20; TEMP 36.6; O2SAT 96
[2020-01-11 05:27] LABS: Hematocrit 34.4 % (42.0-52.0); Hemoglobin 11.3 g/dL (14.0-18.0); Mean Corpuscular HGB Conc 32.8 g/dl (32-36); Mean Corpuscular Hemoglobin 30.6 pg (26-34); Mean Corpuscular Volume 93.2 fl (80-100); Mean Platelet Volume 9.1 fl (7.4-10.4); Platelet Count Result 210 k/mm3 (150-375); Red Blood Count 3.69 M/mm3 (4.6-6.20); Red Cell Distribution Width 13.3 % (11.5-14.5); White Blood Count 6.6 K/mm3 (4.5-10.0)
[2020-01-11 05:38] LABS: Anion Gap 8 mmol/L (8-16); Blood Urea Nitrogen 33 mg/dL (9-20); Calcium 9.2 mg/dL (8.4-10.2); Carbon Dioxide 24 mmol/L (22-30); Chloride 107 mmol/L (98-107); Estimated CRCL calculation 74 ml/min; Estimated Glomerular Filt Rate 49; Glucose 139 mg/dL (75-110); Magnesium 2.2 mg/dL (1.6-2.3); Sodium 139 mmol/L (137-145)
[2020-01-11] MEDS: ACETAMINOPHEN 325 MG TABLET 650 MG PO ×2 (07:19→20:12)
--- NOTE | 2020-01-11 09:02 | PCOTNOTE ---
Attempted to see patient his AM. Patient currently getting an echo. Will continue to attempt.
[2020-01-11] MEDS: busPIRone HCL 10 MG TABLET 30 MG PO ×3 (09:30→16:29)
[2020-01-11] MEDS: amLODIPine BESYLATE 5 MG TABLET 10 MG PO (09:31)
[2020-01-11] MEDS: APIXABAN 5 MG TABLET 10 MG PO ×2 (09:31→20:12)
--- NOTE | 2020-01-11 10:51 | PHAR ---
The patient's home med of Clozapine 100mg has been verified.
[2020-01-11 14:00] VITALS: BP 134/93; PULSE 94; RESP 18; TEMP 36.3; O2SAT 100
--- NOTE | 2020-01-11 15:19 | PM.IMPN ---
Progress Note: A&P Assessment and Plan (1) Bilateral deep vein thromboses: Qualifiers: Affected thrombotic vein of extremity: popliteal Chronicity: unspecified Qualified Code(s): I82.433 - Acute embolism and thrombosis of popliteal vein, bilateral Code(s): I82.403 - Acute embolism and thrombosis of unspecified deep veins of lower extremity, bilateral Status: Acute Assessment and Plan: Likely precipitated by his sedentary lifestyle over the past several months. Patient reportedly used to walk several miles per day on a track but has been unable to do so since the pandemic. Patient complains of lower extremity edema which is related to his bilateral DVTs. Eliquis has been initiated. Continue 10 mg PO q12 for 7 days. Patient has received 2 doses. Transition to 5 mg bid after 7 days Apply GASTON wrap to lower extremities as patient is quite distressed by lower extremity edema. (2) Chronic kidney disease, stage 3: Code(s): N18.3 - Chronic kidney disease, stage 3 (moderate) Status: Acute Assessment and Plan: Creatinine is stable on review of previous labs. Monitor renal function. Avoid nephrotoxic agents. (3) Chronic anemia: Code(s): D64.9 - Anemia, unspecified Status: Acute Assessment and Plan: Hemoglobin and hematocrit are stable on review of previous labs. Monitor H&H. (4) Obstructive sleep apnea: Code(s): G47.33 - Obstructive sleep apnea (adult) (pediatric) Status: Acute Assessment and Plan: He stopped using his CPAP after weight loss however is now having daytime somnolence A CPAP will be provided for him while hospitalized, and he is encouraged to get another machine on discharge. (5) Essential hypertension: Code(s): I10 - Essential (primary) hypertension Status: Acute Assessment and Plan: Blood pressures were reviewed and they had been running in the 140s to 160 systolic. Better controlled today. Continue amlodipine Monitor blood pressures closely (6) Schizoaffective disorder: Code(s): F25.9 - Schizoaffective disorder, unspecified Status: Acute Assessment and Plan: Mood is stable at this time. Continue home medications. Clozapine is non-formulary but patient has his medications from home. CBC will be monitored. (7) Lower urinary tract symptoms: Code(s): R39.9 - Unspecified symptoms and signs involving the genitourinary system Status: Acute Assessment and Plan: Including decreased stream, dribbling, and on occasion uncontrolled leakage. I suspect he probably has underlying BPH. Pre and post void residuals were monitored and patient did not demonstrate any evidence of retention. Monitor I&O to ensure patient is not retaining. (8) Left foot pain: Code(s): M79.672 - Pain in left foot Status: Acute Assessment and Plan: Patient complains of nonspecific foot and ankle pain. He initially reported pain about the lateral malleolus and foot was nontender to palpation. Upon subsequent evaluation and exam he complained of pain about the medial malleolus, the instep, and the dorsum of the foot. he complained of pain with passive range of motion. Ankle x-ray was performed which showed soft tissue swelling and mild polyarticular osteoarthritis with no evidence of fracture or dislocation. Continue Gaston wrap to lower extremity Will obtain x-ray of left foot Tylenol as needed for pain Subjective Date/time seen: 01/11/20 15:19 Interval history: Date of service: 01/11/2020 Patient is a 54-year-old male with a history of CKD stage 3, type 2 DM, HTN, ALISON, and schizoaffective disorder who is being treated for bilateral DVTs. Patient is very concerned about his lower extremity edema. he is having a hard time keeping his legs elevated. He also complains of pain in the left ankle, initially describing pain about the la
[2020-01-11 20:00] VITALS: BP 174/91; PULSE 96; RESP 18; TEMP 37.7; O2SAT 96
[2020-01-11] MEDS: SIMVASTATIN 20 MG TABLET PO (20:12)
[2020-01-11] MEDS: DIVALPROEX SODIUM ER 500 MG TAB 1000 MG PO (20:12)
[2020-01-12 04:00] VITALS: BP 101/48; PULSE 95; RESP 18; TEMP 37.3; O2SAT 96
[2020-01-12 06:04] LABS: Hematocrit 34.7 % (42.0-52.0); Hemoglobin 11.4 g/dL (14.0-18.0); Mean Corpuscular HGB Conc 32.9 g/dl (32-36); Mean Corpuscular Hemoglobin 30.6 pg (26-34); Mean Platelet Volume 9.4 fl (7.4-10.4); Platelet Count Result 235 k/mm3 (150-375); Red Blood Count 3.73 M/mm3 (4.6-6.20); Red Cell Distribution Width 13.2 % (11.5-14.5); White Blood Count 8.3 K/mm3 (4.5-10.0)
[2020-01-12] MEDS: ACETAMINOPHEN 325 MG TABLET 650 MG PO ×2 (06:09→14:59)
[2020-01-12 06:18] LABS: Anion Gap 8 mmol/L (8-16); Blood Urea Nitrogen 28 mg/dL (9-20); Calcium 9.3 mg/dL (8.4-10.2); Carbon Dioxide 23 mmol/L (22-30); Chloride 109 mmol/L (98-107); Estimated CRCL calculation 74 ml/min; Estimated Glomerular Filt Rate 49; Glucose 126 mg/dL (75-110); Potassium 3.8 mmol/L (3.4-5.0); Sodium 140 mmol/L (137-145)
[2020-01-12 08:15] VITALS: BP 127/74; PULSE 93
[2020-01-12] MEDS: busPIRone HCL 10 MG TABLET 30 MG PO ×3 (08:30→16:21)
[2020-01-12] MEDS: APIXABAN 5 MG TABLET 10 MG PO ×2 (08:31→20:18)
[2020-01-12] MEDS: amLODIPine BESYLATE 5 MG TABLET 10 MG PO (08:31)
[2020-01-12 14:00] VITALS: BP 150/92; PULSE 91; RESP 16; TEMP 37.2; O2SAT 97
--- NOTE | 2020-01-12 17:39 | PM.IMPN ---
Progress Note: A&P Assessment and Plan (1) Bilateral deep vein thromboses: Qualifiers: Affected thrombotic vein of extremity: popliteal Chronicity: unspecified Qualified Code(s): I82.433 - Acute embolism and thrombosis of popliteal vein, bilateral Code(s): I82.403 - Acute embolism and thrombosis of unspecified deep veins of lower extremity, bilateral Status: Acute Assessment and Plan: Likely precipitated by his sedentary lifestyle over the past several months. Patient reportedly used to walk several miles per day on a track but has been unable to do so since the pandemic. Patient complains of lower extremity edema which is related to his bilateral DVTs; improved. Eliquis has been initiated. Continue 10 mg PO q12 for 7 days. Stop on 01/17/20. Transition to 5 mg bid after 7 days. Start on 01/18/20. GASTON wrap to lower extremities (2) Left foot pain: Code(s): M79.672 - Pain in left foot Status: Acute Assessment and Plan: Patient complains of nonspecific foot and ankle pain rated 4/10. He initially reported pain about the lateral malleolus and foot was nontender to palpation. Upon subsequent evaluation and exam he complained of pain about the medial malleolus, the instep, and the dorsum of the foot. He complained of pain with passive range of motion and patient expressed pain with light palpation. Ankle x-ray was performed which showed soft tissue swelling and mild polyarticular osteoarthritis with no evidence of fracture or dislocation. Foot x-ray again indicated soft tissue swelling with no acute osseous abnormalities. Patient reports difficulty weight-bearing. With PT, he was minimum assist x1 but refused ambulation upon standing secondary to pain. Patient is worried about caring for himself at home and taking the stairs at home. Continue Gaston wrap to lower extremity Tylenol as needed for pain Continue PT and OT. Recommend working on stairs as this is the patient's biggest concern Elevate extremity Based on my exam findings, I do not believe there is an acute musculoskeletal injury of the left foot or ankle and I believe soft tissue swelling is secondary to DVT. However if pain persists or patient is unable to ambulate, will consider orthopedic consult. (3) Chronic kidney disease, stage 3: Code(s): N18.3 - Chronic kidney disease, stage 3 (moderate) Status: Acute Assessment and Plan: Creatinine is stable on review of previous labs. Monitor renal function. Avoid nephrotoxic agents. (4) Chronic anemia: Code(s): D64.9 - Anemia, unspecified Status: Acute Assessment and Plan: Hemoglobin and hematocrit are stable on review of previous labs. Monitor H&H. (5) Obstructive sleep apnea: Code(s): G47.33 - Obstructive sleep apnea (adult) (pediatric) Status: Acute Assessment and Plan: He stopped using his CPAP after weight loss however is now having daytime somnolence A CPAP will be provided for him while hospitalized, and he is encouraged to get another machine on discharge. (6) Essential hypertension: Code(s): I10 - Essential (primary) hypertension Status: Acute Assessment and Plan: Blood pressures were reviewed today and running 120-150 systolic. = Continue amlodipine Monitor blood pressures closely (7) Schizoaffective disorder: Code(s): F25.9 - Schizoaffective disorder, unspecified Status: Acute Assessment and Plan: Mood is stable at this time although patient is very anxious. Continue home medications. Clozapine is non-formulary but patient has his medications from home. CBC will be monitored. (8) Lower urinary tract symptoms: Code(s): R39.9 - Unspecified symptoms and signs involving the genitourinary system Status: Acute Assessment and Plan: Including decreased stream, dribbling, and on occasion uncontrolled leakage
[2020-01-12] MEDS: SIMVASTATIN 20 MG TABLET PO (20:20)
[2020-01-12] MEDS: DIVALPROEX SODIUM ER 500 MG TAB 1000 MG PO (20:20)
[2020-01-12 21:54] VITALS: BP 146/90; PULSE 87; RESP 20; TEMP 36.7; O2SAT 98
[2020-01-13 05:48] LABS: Hematocrit 35.8 % (42.0-52.0); Hemoglobin 11.5 g/dL (14.0-18.0); Mean Corpuscular HGB Conc 32.1 g/dl (32-36); Mean Corpuscular Hemoglobin 29.4 pg (26-34); Mean Corpuscular Volume 91.6 fl (80-100); Platelet Count Result 278 k/mm3 (150-375); Red Blood Count 3.91 M/mm3 (4.6-6.20); Red Cell Distribution Width 12.9 % (11.5-14.5)
[2020-01-13 06:00] VITALS: BP 118/70; PULSE 94; RESP 20; TEMP 37.1; O2SAT 97
[2020-01-13 06:13] LABS: Anion Gap 8 mmol/L (8-16); Blood Urea Nitrogen 24 mg/dL (9-20); Calcium 9.6 mg/dL (8.4-10.2); Carbon Dioxide 26 mmol/L (22-30); Chloride 106 mmol/L (98-107); Estimated CRCL calculation 74 ml/min; Estimated Glomerular Filt Rate 49; Glucose 141 mg/dL (75-110); Sodium 140 mmol/L (137-145)
[2020-01-13] MEDS: busPIRone HCL 10 MG TABLET 30 MG PO ×3 (08:58→18:13)
[2020-01-13] MEDS: amLODIPine BESYLATE 5 MG TABLET 10 MG PO (08:58)
[2020-01-13] MEDS: FUROSEMIDE 20 MG TABLET PO (08:58)
[2020-01-13] MEDS: APIXABAN 5 MG TABLET 10 MG PO ×2 (08:58→20:11)
[2020-01-13] MEDS: ACETAMINOPHEN 325 MG TABLET 650 MG PO ×2 (10:23→20:05)
--- NOTE | 2020-01-13 12:55 | PM.IMPN ---
Progress Note: A&P Assessment and Plan (1) Bilateral deep vein thromboses: Qualifiers: Affected thrombotic vein of extremity: popliteal Chronicity: unspecified Qualified Code(s): I82.433 - Acute embolism and thrombosis of popliteal vein, bilateral Code(s): I82.403 - Acute embolism and thrombosis of unspecified deep veins of lower extremity, bilateral Status: Acute Assessment and Plan: Likely precipitated by his sedentary lifestyle over the past several months. Patient reportedly used to walk several miles per day on a track but has been unable to do so since the pandemic. Patient complains of lower extremity edema which is related to his bilateral DVTs and has improved. Eliquis has been initiated. Continue 10 mg PO q12 for 7 days. Stop on 01/17/20. Transition to 5 mg bid after 7 days. Start on 01/18/20. GASTON wrap to lower extremities Add Lasix 20 mg daily for hopeful improvement of edema (2) Bilateral foot pain: Code(s): M79.671 - Pain in right foot; M79.672 - Pain in left foot Status: Acute Assessment and Plan: Patient complained of nonspecific left foot and ankle pain rated 4-8/10. He initially reported pain about the lateral malleolus and then on subsequent evaluation he had pain at the medial malleolus, the instep, and the dorsum of the foot. Left ankle x-ray showed soft tissue swelling and no evidence of fracture or dislocation. Left foot x-ray showed no acute osseous abnormalities. With PT, he was minimum assist x1 but is unwilling to attempt weight bearing. Patient is worried about caring for himself at home and taking the stairs at home. Patient now reporting his left foot pain has improved markedly and he now has 9/10 diffuse, nonspecific right foot and ankle pain which occurred suddenly today. No injury occurred as patient has not been weight bearing. Continue Gaston wrap to lower extremity Tylenol as needed for pain Continue PT and OT. Encouraged patient to attempt weight bearing. Elevate extremities. He has been noncompliant with elevation. Based on my exam findings, I do not believe there is an acute musculoskeletal injury of the left or right foot. No indication for right foot imaging at this time. Care coordination is following for placement given patient's concerns of caring for himself in the home. COVID test performed today. (3) Chronic kidney disease, stage 3: Code(s): N18.3 - Chronic kidney disease, stage 3 (moderate) Status: Acute Assessment and Plan: Creatinine is stable on review of previous labs. Monitor renal function. Avoid nephrotoxic agents. (4) Chronic anemia: Code(s): D64.9 - Anemia, unspecified Status: Acute Assessment and Plan: Hemoglobin and hematocrit are stable on review of previous labs. Monitor H&H. (5) Obstructive sleep apnea: Code(s): G47.33 - Obstructive sleep apnea (adult) (pediatric) Status: Acute Assessment and Plan: He stopped using his CPAP after weight loss however is now having daytime somnolence A CPAP will be provided for him while hospitalized, and he is encouraged to get another machine on discharge. (6) Essential hypertension: Code(s): I10 - Essential (primary) hypertension Status: Acute Assessment and Plan: Blood pressures was reviewed today and is stable. Continue amlodipine Monitor blood pressures closely (7) Schizoaffective disorder: Code(s): F25.9 - Schizoaffective disorder, unspecified Status: Acute Assessment and Plan: Mood is stable at this time although patient is very anxious. I believe that his underlying psychiatric disorders are contributing to his fear of discharge and nonspecific pain symptoms. Continue home medications. Clozapine is non-formulary but patient has his medications from home. CBC will be monitored. (8) Lower urinary tract symptoms: Code(s)
[2020-01-13 13:50] VITALS: BP 147/77; PULSE 99; RESP 18; TEMP 37.1; O2SAT 97
[2020-01-13 20:05] VITALS: TEMP 38.1
[2020-01-13] MEDS: DIVALPROEX SODIUM ER 500 MG TAB 1000 MG PO (20:12)
[2020-01-13] MEDS: SIMVASTATIN 20 MG TABLET PO (20:13)
[2020-01-13 21:05] VITALS: TEMP 38.7
[2020-01-13 22:00] VITALS: BP 136/80; PULSE 99; RESP 18; TEMP 38.1; O2SAT 96
[2020-01-13 22:10] VITALS: TEMP 38.7
[2020-01-13 22:47] LABS: SARS-CoV-2 RNA PCR Negative
[2020-01-14 00:14] LABS: CRP 16.5 mg/dL (<1.0)
[2020-01-14 02:00] VITALS: TEMP 37.5
[2020-01-14 05:19] LABS: Add Urine Microscopic? YES; Appearance Urine Clear (Clear); Bilirubin Urine Negative (Negative); Blood Urine 1+ (Negative); Color Urine Straw (Yellow); Glucose Urine UA Negative (Negative); Ketones Urine Negative (Negative); Leukocyte Esterase Ur Negative LEU/UL (Negative); Nitrate Urine Negative (Negative); Protein Urine 1+ mg/dL (Negative); RBC Urine 0-2 /hpf (0-2); Specific Grav Ur 1.009 (1.001-1.035); Urobilinogen Urine Negative mg/dL (<2.0); WBC Urine 0-3 /hpf
[2020-01-14 06:00] VITALS: BP 137/81; PULSE 97; RESP 21; TEMP 36.3; O2SAT 100
[2020-01-14 07:44] LABS: Hematocrit 36.2 % (42.0-52.0); Mean Corpuscular HGB Conc 33.1 g/dl (32-36); Mean Corpuscular Hemoglobin 30.5 pg (26-34); Mean Corpuscular Volume 91.9 fl (80-100); Platelet Count Result 257 k/mm3 (150-375); Red Blood Count 3.94 M/mm3 (4.6-6.20); Red Cell Distribution Width 13.1 % (11.5-14.5); White Blood Count 7.9 K/mm3 (4.5-10.0)
[2020-01-14 07:59] LABS: Anion Gap 8 mmol/L (8-16); Blood Urea Nitrogen 26 mg/dL (9-20); Calcium 9.2 mg/dL (8.4-10.2); Carbon Dioxide 26 mmol/L (22-30); Chloride 104 mmol/L (98-107); Estimated CRCL calculation 80 ml/min; Estimated Glomerular Filt Rate 53; Glucose 139 mg/dL (75-110); Potassium 4.2 mmol/L (3.4-5.0); Sodium 138 mmol/L (137-145)
[2020-01-14] MEDS: amLODIPine BESYLATE 5 MG TABLET 10 MG PO (08:02)
[2020-01-14] MEDS: FUROSEMIDE 20 MG TABLET PO (08:02)
[2020-01-14] MEDS: APIXABAN 5 MG TABLET 10 MG PO (08:02)
[2020-01-14] MEDS: busPIRone HCL 10 MG TABLET 30 MG PO ×3 (08:02→17:30)
[2020-01-14] MEDS: ACETAMINOPHEN 325 MG TABLET 650 MG PO (08:13)
[2020-01-14 09:13] VITALS: TEMP 36.3
--- NOTE | 2020-01-14 13:35 | PM.IMPN ---
Subjective Date/time seen: 01/14/20 1200 Objective Data Vital Signs Vital Signs: Vital Signs - 24 hr 01/13/20 13:50 01/13/20 20:05 01/13/20 21:05 Temperature 98.8 F 100.5 F H 101.7 F H Pulse Rate 99 Respiratory Rate 18 Blood Pressure 147/77 H Pulse Oximetry 97 01/13/20 22:00 01/13/20 22:10 01/14/20 02:00 Temperature 100.5 F H 101.7 F H 99.5 F Pulse Rate 99 Respiratory Rate 18 Blood Pressure 136/80 Pulse Oximetry 96 01/14/20 06:00 01/14/20 09:13 Temperature 97.4 F L 97.4 F L Pulse Rate 97 Respiratory Rate 21 H Blood Pressure 137/81 Pulse Oximetry 100 Intake/Output Intake/Output: Intake & Output 01/11/20 01/12/20 01/13/20 01/14/20 23:59 23:59 23:59 23:59 Intake Total 1700 2100 2460 1840 Output Total 1500 2250 3000 1900 Balance 200 -150 -540 -60 Meds/Results Medications: Active Medications Generic Name Dose Route Start Last Admin Trade Name Freq PRN Reason Stop Dose Admin Acetaminophen 650 mg 01/11/20 06:37 01/14/20 08:13 Tylenol Tablet PO 650 mg Q4H PRN Administration Mild Pain (1-3) or Fever Amlodipine Besylate 10 mg 01/11/20 09:00 01/14/20 08:02 Norvasc PO 10 mg DAILY UDAY Administration Apixaban 10 mg 01/11/20 09:00 01/14/20 08:02 Eliquis PO 01/17/20 09:01 10 mg Q12HR UDAY Administration Apixaban 5 mg 01/17/20 21:00 Eliquis PO Q12HR UDAY Buspirone HCl 30 mg 01/11/20 09:00 01/14/20 12:22 Buspar PO 30 mg TID UDAY Administration Divalproex Sodium 1,000 mg 01/10/20 23:25 01/13/20 20:12 Depakote Er PO 1,000 mg HS UDAY Administration Furosemide 20 mg 01/13/20 09:00 01/14/20 08:02 Lasix Tablet PO 20 mg DAILY UDAY Administration Ondansetron HCl 4 mg 01/10/20 17:00 Zofran Inj IV PUSH Q4H PRN Nausea Simvastatin 20 mg 01/10/20 23:25 01/13/20 20:13 Zocor PO 20 mg HS UDAY Administration Radiology Results: ITS Impressions Ankle X-Ray 01/10/20 14:53 IMPRESSION: 1. Soft tissue swelling. 2. Mild polyarticular osteoarthritis. Knee X-Ray 01/10/20 15:08 IMPRESSION: 1. XR knee LT 3V exam without acute osseous findings. Venous Doppler Study 01/10/20 17:43 IMPRESSION: 1. Deep venous necrosis at the bilateral popliteal veins and left lesser saphenous vein. 2. Moderate-sized left Ambrose's cyst. Foot X-Ray 01/11/20 18:19 IMPRESSION: 1. No acute osseous abnormality. 2. Chronic degenerative changes including mild polyarticular osteoarthritis and scattered enthesophytes. Chest X-Ray 01/13/20 22:35 IMPRESSION: 1: Right basilar infiltrates, atelectasis versus pneumonia. Labs Labs: Laboratory Results - last 24 hr 01/13/20 01/13/20 01/14/20 12:18 22:57 05:07 WBC RBC Hgb Hct MCV MCH MCHC RDW Plt Count MPV Sodium Potassium Chloride Carbon Dioxide Anion Gap BUN Creatinine Estim Creat Clear Calc Estimated GFR Glucose Calcium C-Reactive Protein 16.5 H Urine Color Straw Urine Appearance Clear Urine pH 6.0 Ur Specific [employer] [place] 1.009 Urine Protein 1+ H Urine Glucose (UA) Negative Urine Ketones Negative Ur Blood (Man) 1+ H Urine Nitrate Negative Urine Bilirubin Negative Urine Urobilinogen Negative Leukocyte Esterase Rfl Negative Urine RBC 0-2 Urine WBC 0-3 SARS-CoV-2 RNA (RT-PCR) Negative 01/14/20 01/14/20 07:27 07:27 WBC 7.9 RBC 3.94 L Hgb 12.0 L Hct 36.2 L MCV 91.9 MCH 30.5 MCHC 33.1 RDW 13.1 Plt Count 257 MPV 9.0 Sodium 138 Potassium 4.2 Chloride 104 Carbon Dioxide 26 Anion Gap 8 BUN 26 H Creatinine 1.40 H Estim Creat Clear Calc 80 Estimated GFR 53 L Glucose 139 H Calcium 9.2 C-Reactive Protein Urine Color Urine Appearance Urine pH Ur Specific [employer] [place] Urine Protein Urine Glucose (UA) Urine Ketones Ur Bl
[2020-01-14 14:00] VITALS: BP 151/89; PULSE 94; RESP 16; TEMP 36.8; O2SAT 98
--- NOTE | 2020-01-14 14:07 | PM.DS ---
DS: Admitting Diagnosis Admitting Diagnosis Admitting Diagnosis: Left ankle pain. DS: Discharge Diagnosis Discharge Diagnosis (1) Bilateral deep vein thromboses: Qualifiers: Affected thrombotic vein of extremity: popliteal Chronicity: unspecified Qualified Code(s): I82.433 - Acute embolism and thrombosis of popliteal vein, bilateral Code(s): I82.403 - Acute embolism and thrombosis of unspecified deep veins of lower extremity, bilateral Status: Acute Assessment and Plan: Date of Service 01/14/20 Mr. Henderson is a 54yo M with history of schizoeffective disorder, hypertension, chronic kidney disease, and obstructive sleep apnea who presented to the ED for evaluation of left ankle pain and swelling. He was found to have bilateral lower extremity DVTs and was started on Eliquis. He had difficulty while working with therapy and required much encouragement to even bear weight on his right and left lower extremities. He felt that he was unsafe discharge home, noted he did not have family to stay with. He was most interested in discharging to a nursing facility for more therapy prior to returning home. He was hemodynamically stable for discharge to nursing facility on 01/14/20 with prescriptions for Eliquis and instructions to follow up with PCP. Likely precipitated by his sedentary lifestyle over the past several months. Patient reportedly used to walk several miles per day on a track but has been unable to do so since the pandemic. Patient complains of lower extremity edema which is related to his bilateral DVTs and has improved. Eliquis has been initiated. Continue 10 mg PO q12 for 7 days. Stop on 01/17/20. Transition to 5 mg bid after 7 days. Start on 01/18/20. CIRA wrap to lower extremities Add Lasix 20 mg daily for hopeful improvement of edema (2) Bilateral foot pain: Code(s): M79.671 - Pain in right foot; M79.672 - Pain in left foot Status: Acute Assessment and Plan: Patient complained of nonspecific left foot and ankle pain rated 4-8/10. He initially reported pain about the lateral malleolus and then on subsequent evaluation he had pain at the medial malleolus, the instep, and the dorsum of the foot. Left ankle x-ray showed soft tissue swelling and no evidence of fracture or dislocation. Left foot x-ray showed no acute osseous abnormalities. With PT, he was minimum assist x1 but is unwilling to attempt weight bearing. Patient is worried about caring for himself at home and taking the stairs at home. Elevation, Tylenol for pain. (3) Chronic kidney disease, stage 3: Code(s): N18.3 - Chronic kidney disease, stage 3 (moderate) Status: Acute Assessment and Plan: Creatinine is stable on review of previous labs. (4) Chronic anemia: Code(s): D64.9 - Anemia, unspecified Status: Acute Assessment and Plan: H&H low but stable on review of previous labs. No evidence of acute bleeding. (5) Obstructive sleep apnea: Code(s): G47.33 - Obstructive sleep apnea (adult) (pediatric) Status: Acute Assessment and Plan: He stopped using his CPAP after weight loss however is now having daytime somnolence A CPAP was provided for him while hospitalized, and he is encouraged to get another machine on discharge or repeat sleep study if needed. Follow up with PCP. (6) Essential hypertension: Code(s): I10 - Essential (primary) hypertension Status: Acute Assessment and Plan: Stable maintained on home amlodipine. (7) Schizoaffective disorder: Code(s): F25.9 - Schizoaffective disorder, unspecified Status: Acute Assessment
--- NOTE | 2020-01-21 10:48 | PC.NURSE ---
Blood cx are negative.
[2020-01-24 09:19] LABS: Potassium 4.1 mmol/L (3.4-5.0)
== END 2020-01-14 18:03 | DRG 301 ==
LOC: ANHED 17:06 → ANH2MED 17:37
PROVIDERS: Physician Assistant; Admitting Provider Internal Medicine; Emergency Provider Emergency Medicine; PCP Emergency Medicine; Visit Provider Physician Assistant
DX: I82.433 Acute embolism and thrombosis of popliteal vein, bilateral (principal); Z20.828 Contact with and (suspected) exposure to other viral communicable diseases; I12.9 Hypertensive chronic kidney disease with stage 1 through stage 4 chronic kidney disease, or unspecified chronic kidney disease; E11.22 Type 2 diabetes mellitus with diabetic chronic kidney disease; N18.3 Chronic kidney disease, stage 3 (moderate); F25.9 Schizoaffective disorder, unspecified; G47.33 Obstructive sleep apnea (adult) (pediatric); D64.9 Anemia, unspecified; M79.672 Pain in left foot; N40.1 Benign prostatic hyperplasia with lower urinary tract symptoms; R32 Unspecified urinary incontinence; E78.5 Hyperlipidemia, unspecified; M54.5 Low back pain; G89.29 Other chronic pain
CPT/HCPCS: 36415; 71045; 73562; 73610; 73620; 80048; 80053; 80307; 81001; 83735; 84443; 85025; 85027; 85652; 86140; 87040; 87635; 93970; 96374; 97110; 97162; 97165; 97530; 99285; A9270; C8929; C9803; G0378; J1885; J7030; Q9957; U0003

== ENCOUNTER 2020-08-13 09:10 | Outpatient (CLI) | payer MEDICARE, MEDICAID, SELFPAY ==
--- NOTE | ~2020-08-13 | CT_ITS ---
EXAMINATION: CT diagnostic chest w con DATE: 08/13/2020 10:23 INDICATION: Lymphadenopathy of the axilla TECHNIQUE: Computed tomography (CT) of the chest was performed with 75 cc Omnipaque 350 intravenous c ontrast. The dose-length product was 704.74 mGy-cm. Automated exposure control and iterative reconstr uction technique were employed. COMPARISON: Chest dated 01/13/2020 FINDINGS: No evidence for aortic aneurysm or dissection. Heart size is normal. No axillary, mediastin al or hilar lymphadenopathy. No significant pleural or pericardial effusion. There are a few small sc attered calcified granulomas of the lung parenchyma. No focal airspace consolidation. No endobronchia l lesions. Tiny 2 mm left upper lobe nodule, image 78, likely benign noncalcified granuloma. There is diffuse idiopathic skeletal hyperostosis (DISH) of the thoracic spine. . IMPRESSION: 1. No acute cardiopulmonary disease. No lymphadenopathy. Reviewed, dictated and finalized at location A.
--- NOTE | ~2020-08-13 | US_ITS ---
EXAMINATION: US venous doppler LE DATE: 08/13/2020 09:56 INDICATION: Acute deep venous thrombosis of the proximal veins of the bilateral lower limbs. TECHNIQUE: Grayscale ultrasound images without and with compression and Doppler ultrasound images of the bilateral lower extremity veins were obtained. COMPARISON: None. FINDINGS: The right popliteal vein is now partially compressible with small amount of residual nonocclusive per ipheral likely chronic deep venous thrombosis. Incidentally noted is 1 second of reflux at the right popliteal vein. There is age-indeterminate noncompressible thrombosis in the right lesser saphenous v ein which was not imaged on the prior study. The visualized portions of right common femoral vein, pr ofunda (deep) femoral vein, femoral vein, posterior tibial veins, peroneal veins, gastrocnemius vein and greater saphenous vein outflow are patent. The left popliteal vein remains partially compressible with residual nonocclusive likely chronic deep venous thrombosis. Incidentally noted is 2 seconds of reflux at the right popliteal vein. Per discus johan with the technologist, the previously thrombosed left lesser saphenous vein was patent and compr essible but the images were inadvertently not recorded. The visualized portions of left common femora l vein, profunda femoral vein, femoral vein, posterior tibial veins, peroneal veins, gastrocnemius ve in and greater saphenous vein outflow are patent. IMPRESSION: 1. Persistent nonocclusive chronic deep venous thrombosis at the left and right popliteal veins barrington g with age-indeterminate thrombus within the partially compressible right lesser saphenous vein which was not imaged on the prior study. Reviewed, dictated and finalized at location A. IMPRESSION: 1. Persistent nonocclusive chronic deep venous thrombosis at the left and righ t popliteal veins along with age-indeterminate thrombus within the partially co mpressible right lesser saphenous vein which was not imaged on the prior study.
[2020-08-13 10:14] LABS: Estimated Glomerular Filt Rate 48
== END 2020-08-13 09:11 | disposition home or self-care (01) ==
PROVIDERS: PCP Emergency Medicine; Visit Provider Internal Medicine Hematology & Oncology
DX: I82.4Y3 Acute embolism and thrombosis of unspecified deep veins of proximal lower extremity, bilateral (principal); I82.532 Chronic embolism and thrombosis of left popliteal vein; I87.1 Compression of vein
CPT/HCPCS: 71260; 93970; Q9967

== ENCOUNTER 2020-11-30 09:23 | Outpatient (CLI) | payer MEDICARE, MEDICAID, SELFPAY ==
--- NOTE | ~2020-11-30 | US_ITS ---
EXAMINATION: US venous doppler [facility] DATE: 11/30/2020 10:21 INDICATION: Acute deep vein thrombosis of proximal vein of bilateral lower extremities. TECHNIQUE: Grayscale ultrasound images without and with compression and Doppler ultrasound images of the bilateral lower extremity veins were obtained. COMPARISON: Ultrasound 08/13/2020 FINDINGS: The visualized portions of right common femoral vein, profunda (deep) femoral vein, femoral vein, per chavarria veins, posterior tibial veins, and greater saphenous vein outflow are patent. There is nonocclu sive thrombus in popliteal vein. The visualized portions of left common femoral vein, profunda femoral vein, femoral vein, peroneal ve ins, posterior tibial veins, and greater saphenous vein outflow are patent. There is nonocclusive thr ombus in popliteal vein. IMPRESSION: 1. Chronic nonocclusive deep vein thrombus involving the bilateral popliteal veins. Reviewed, dictated and finalized at location A. IMPRESSION: 1. Chronic nonocclusive deep vein thrombus involving the bilateral popliteal v eins.
== END 2020-11-30 09:24 | disposition home or self-care (01) ==
PROVIDERS: PCP Emergency Medicine; Visit Provider Internal Medicine Hematology & Oncology
DX: I82.4Y3 Acute embolism and thrombosis of unspecified deep veins of proximal lower extremity, bilateral (principal)
CPT/HCPCS: 93970

== ENCOUNTER 2021-03-19 09:09 | Emergency (ER) | payer MEDICARE, MEDICAID, SELFPAY ==
--- NOTE | ~2021-03-19 | XR_ITS ---
EXAMINATION: XR lumbar spine 2-3V DATE: 03/19/2021 10:58 INDICATION: Low back pain TECHNIQUE: Anteroposterior and lateral views of the lumbar spine, and cone-down lateral view of the l umbosacral junction were obtained. COMPARISON: 11/26/2011 FINDINGS: There are 2 mm of unchanged anterolisthesis of L3 on L4. There is severe loss of interverte bral disc space height from L2-3 through L5-S1. The vertebral body heights are maintained. There is n o fracture. There is advanced facet osteoarthritis of the lower lumbar spine. There are 22 degrees of lumbar levoscoliosis. IMPRESSION: 1. Severe lumbar spondylosis without acute findings or significant interval change. Reviewed, dictated and finalized at location A. IMPRESSION: 1. Severe lumbar spondylosis without acute findings or significant interval margo nge.
--- NOTE | ~2021-03-19 | XR_ITS ---
EXAMINATION: XR hip BI 2V w AP pelvis EXAM DATE: 03/19/2021 10:57 INDICATION: [place] hip pain, no known injury. TECHNIQUE: Each hip imaged independently (separate right and also left hip) 'frog leg' and frontal p rojections for interpretation. Frontal projection pelvis. Comparison is made to prior examination fr 08/14/2019. FINDINGS: No radiographic evidence of hip avascular necrosis. There is mild symmetric bilateral hip primary osteoarthritis. There are no acute fractures or dislocations identified. There is no subcuta neous gas. The soft tissue is unremarkable. There are no radiopaque foreign bodies. IMPRESSION: Mild symmetric bilateral hip osteoarthritis. Reviewed, dictated and finalized at location B.
[2021-03-19 09:21] VITALS: BP 162/145; PULSE 90; RESP 18; TEMP 36.4; O2SAT 97
[2021-03-19 10:00] VITALS: BP 151/80; PULSE 86; RESP 22; O2SAT 98
--- NOTE | 2021-03-19 10:28 | ED.BACK ---
HPI - Back Pain/Injury General Chief Complaint: Back Pain/Injury <Sabine Peres PA-C - Last Filed: 03/19/21 11:43> Stated Complaint: low back pain <TWIN Ortega Last Filed: 03/19/21 11:43> Time Seen by Provider: 03/19/21 10:11 <TWIN Ortega Last Filed: 03/19/21 11:43> Source: patient <TWIN Ortega Last Filed: 03/19/21 11:43> Mode of arrival: ambulatory <TWIN Ortega Last Filed: 03/19/21 11:43> Limitations: no limitations <TWIN Ortega Last Filed: 03/19/21 11:43> History of Present Illness HPI Narrative: This is a 55-year-old male that presents to the emergency department for low back pain present over the last week. Reports the pain is sharp and happens with position change and sitting up. The pain radiates into his hips. No recent injury or trauma. He has been taking Tylenol with some relief. Denies fever, saddle anesthesia, or bowel/bladder incontinence. <TWIN Ortega Last Filed: 03/19/21 11:43> Related Data Home Medications: Home Medications Medication Instructions Recorded Confirmed buspirone 30 mg PO TID 08/14/19 01/10/20 clozapine 300 mg HS 08/14/19 01/10/20 divalproex 1,000 mg PO HS 08/14/19 01/10/20 simvastatin 20 mg PO HS 08/14/19 01/10/20 amlodipine 10 mg PO DAILY 01/10/20 01/10/20 <TWIN Ortega Last Filed: 03/19/21 11:43> Allergies/Adverse Reactions: Allergies Allergy/AdvReac Type Severity Reaction Status Date / Time hydrocodone Allergy Unknown Verified 03/19/21 09:27 [From Panlor (hydrocodone-acetamin)] nortriptyline AdvReac Unknown Vomiting Verified 03/19/21 09:27 <TWIN Ortega Last Filed: 03/19/21 11:43> Review of Systems Review of Systems: CONSTITUTIONAL: Denies fever, SKIN: Denies rash MUSCULOSKELETAL: Reports back pain, joint pain, and myalgia. NEUROLOGIC: Denies numbness, or weakness. <Sabine Peres PA-C - Last Filed: 03/19/21 11:43> All systems reviewed & are unremarkable except as noted in HPI and below <Sabine Peres PA-C - Last Filed: 03/19/21 11:43> [facility] Past Medical History Medical History: Medical History (Updated 03/19/21 @ 11:42 by Sabine Peres PA-C) Anxiety Chronic anemia Chronic kidney disease, stage 3 Baseline creatinine is between 1.7 and 1.90. Chronic lower back pain He frequently sees his chiropractor, which offers him a lot of benefit. Diet-controlled type 2 diabetes mellitus Dyslipidemia Essential hypertension Obstructive sleep apnea No longer using CPAP after weight loss. Schizoaffective disorder <Sabine Peres PA-C - Last Filed: 03/19/21 11:43> Surgical History Surgical History: Surgical History (Updated 01/10/20 @ 23:06 by Carly Giron PA-C) History of tonsillectomy and adenoidectomy <Sabine Peres PA-C - Last Filed: 03/19/21 11:43> Family History Family History: Family History (Updated 01/10/20 @ 23:06 by Carly Giron PA-C) Other Unknown family medical history <Sabine Peres PA-C - Last Filed: 03/19/21 11:43> Social History Social History: Social History (Updated 01/10/20 @ 23:07 by Carly Giron PA-C) Social History: Surrogate decision maker: Manpreet Henderson, nephew. Code status: Full code. Smoking status: Never smoker Alcohol intake: former Substance use: never Additional living arrangements comments: Lives in his own apartment in [place]. He has no children and has never . He is adopted. Additional occupation/education comments: Disabled. Gender identity (if verbalized by the patient): Male Spiritual care concerns: Yes (Father Juan Simons, Father Daniel Valadez) <Sabine Peres PA-C - Last Filed: 03/19/21 11:43> Exam Narrative: GENERAL: Well-appearing, obese, and in no acute distress. HEAD: Normocephalic, atraumatic. EYES: EOMI. CHEST: Clear to auscultation. No respir
[2021-03-19 11:00] VITALS: BP 149/80; PULSE 84; RESP 22; O2SAT 98
[2021-03-19] MEDS: KETOROLAC (*BKC) 60 MG/2 ML VIAL IM (11:19)
[2021-03-19] MEDS: ACETAMINOPHEN 500 MG TABLET 1000 MG PO (11:20)
[2021-03-19 12:00] VITALS: BP 131/87; PULSE 93; RESP 20; O2SAT 99
--- NOTE | 2021-03-19 12:35 | PC.NURSE ---
Pt requesting to speak with physician prior to discharge regarding pain control. Sabine Carrasco notified.
[2021-03-19 13:10] VITALS: BP 131/87; PULSE 92; RESP 20; O2SAT 98
== END 2021-03-19 13:10 | disposition home or self-care (01) ==
PROVIDERS: Emergency Provider Emergency Medicine; PCP Emergency Medicine
DX: M54.50 Low back pain, unspecified (principal); E78.5 Hyperlipidemia, unspecified; E11.22 Type 2 diabetes mellitus with diabetic chronic kidney disease; I12.9 Hypertensive chronic kidney disease with stage 1 through stage 4 chronic kidney disease, or unspecified chronic kidney disease; N18.30 Chronic kidney disease, stage 3 unspecified; F25.9 Schizoaffective disorder, unspecified; M16.0 Bilateral primary osteoarthritis of hip; M47.816 Spondylosis without myelopathy or radiculopathy, lumbar region; G47.33 Obstructive sleep apnea (adult) (pediatric); D64.9 Anemia, unspecified
CPT/HCPCS: 72100; 73521; 96372; 99284; A9270; J1885

== ENCOUNTER 2021-05-24 14:36 | Outpatient (CLI) | payer MEDICARE, MEDICAID, SELFPAY ==
--- NOTE | ~2021-05-24 | US_ITS ---
EXAMINATION: US venous doppler [facility] DATE: 05/24/2021 15:38 INDICATION: Acute deep venous thrombosis of the proximal veins of both lower limbs TECHNIQUE: Grayscale ultrasound images without and with compression and Doppler ultrasound images of the bilateral lower extremity veins were obtained. COMPARISON: 11/30/2020 FINDINGS: Right popliteal vein is partially compressible with persistent nonocclusive thrombus. The visualized portions of right common femoral vein, profunda (deep) femoral vein, femoral vein, gastrocnemius vein and greater saphenous vein outflow are patent. Appropriate directional flow is seen in the right pos terior tibial and peroneal veins at the calf however visualization is insufficient to assess for comp ressibility. Chronic appearing nonocclusive thrombus with linear echogenic margins in the mid left femoral vein an d in the left popliteal vein. The visualized portions of left common femoral vein, profunda femoral v ein, gastrocnemius vein and greater saphenous vein outflow are patent. Appropriate directional flow i s seen in the left posterior tibial and peroneal veins at the calf however visualization is insuffici ent to assess for compressibility IMPRESSION: 1. Persistent chronic nonocclusive deep venous thrombosis in the bilateral popliteal veins as well a s in the mid left femoral vein. Reviewed, dictated and finalized at location B. ERVATIONIST IMPRESSION: 1. Persistent chronic nonocclusive deep venous thrombosis in the bilateral pop liteal veins as well as in the mid left femoral vein.
== END 2021-05-24 14:37 | disposition home or self-care (01) ==
PROVIDERS: PCP Emergency Medicine; Visit Provider Internal Medicine Hematology & Oncology
DX: I82.532 Chronic embolism and thrombosis of left popliteal vein (principal); I82.512 Chronic embolism and thrombosis of left femoral vein
CPT/HCPCS: 93970

== ENCOUNTER 2022-01-03 15:51 | Inpatient (IN) | payer MEDICARE, MEDICAID, SELFPAY ==
[2022-01-03] VITALS (15 sets, daily range): BP systolic 101–163; BP diastolic 60–148; PULSE 87–99; RESP 12–23; TEMP 36.1–36.9; O2SAT 97–99; BMI 40.4
--- NOTE | ~2022-01-03 | US_ITS ---
EXAMINATION: US venous doppler LE DATE: 01/03/2022 18:21 INDICATION: Lower limb pain and swelling. TECHNIQUE: Grayscale ultrasound images without and with compression and Doppler ultrasound images of the bilateral lower extremity veins were obtained. COMPARISON: Ultrasound 05/24/2021 FINDINGS: The visualized portions of right common femoral vein, profunda (deep) femoral vein, femoral vein, per chavarria veins, posterior tibial veins, and greater saphenous vein outflow are patent. There is nonocclu sive thrombus in right popliteal vein. The visualized portions of left common femoral vein, profunda femoral vein, femoral vein, popliteal v ein, peroneal veins, posterior tibial veins, and greater saphenous vein outflow are patent. IMPRESSION: 1. Deep vein thrombosis involving right popliteal vein. Reviewed, dictated and finalized at location A.
--- NOTE | ~2022-01-03 | XR_ITS ---
EXAMINATION: XR ankle RT 2V INDICATION: Right ankle pain, initial encounter TECHNIQUE: Two views of the right ankle are obtained. COMPARISON: None available FINDINGS: There is a transverse fracture of the medial malleolus below the level of the tibial plafon d. No additional fracture is identified on this limited two view examination. The ankle mortise is in tact. There is soft tissue swelling of ankle. Posterior and plantar calcaneal enthesophytes are noted . IMPRESSION: 1. Acute transverse fracture of the medial malleolus below the level of the tibial plafond. Reviewed, dictated and finalized at location A. IMPRESSION: 1. Acute transverse fracture of the medial malleolus below the level of the tib ial plafond.
--- NOTE | ~2022-01-03 | XR_ITS ---
EXAMINATION: XR chest 1V portable DATE: 01/04/2022 06:28 INDICATION: Shortness of breath TECHNIQUE: frontal view of the chest was obtained. COMPARISON: Chest radiograph dated 01/13/2020 FINDINGS: The lungs are clear with no focal airspace opacities, pulmonary edema, pleural effusion or pneumothor ax. The cardiomediastinal silhouette is normal. Moderate right and mild left glenohumeral osteoarthri tis. Interval resection of the lateral right clavicle. Nonspecific soft tissue gas along both the lat eral left and right lower chest/upper abdominal wall. IMPRESSION: 1. No acute cardiopulmonary disease. 2. Extensive nonspecific subcutaneous gas at the left and right lateral lower chest/upper abdominal w all which is of indeterminate etiology. Correlate for recent surgery/laceration or findings to sugges t necrotizing fasciitis, the latter which would be a surgical emergency. Dr. Valles discussed these findings with Dr. Easley at 8:40 AM. Reviewed, dictated and finalized at location A. IMPRESSION: 1. No acute cardiopulmonary disease. 2. Extensive nonspecific subcutaneous gas at the left and right lateral lower c hest/upper abdominal wall which is of indeterminate etiology. Correlate for rec ent surgery/laceration or findings to suggest necrotizing fasciitis, the latter which would be a surgical emergency. Dr. Valles discussed these findings wit h Dr. Easley at 8:40 AM.
--- NOTE | ~2022-01-03 | XR_ITS ---
EXAMINATION: XR ankle LT 2V DATE: 01/05/2022 15:37 INDICATION: Left ankle pain TECHNIQUE: Two views of the left. COMPARISON: 01/10/2020 FINDINGS: There is an old healed avulsion injury of the lateral malleolus. No acute fracture is ident ified. Ankle soft tissue swelling is present. Posterior and plantar calcaneal enthesophytes are noted . There is mild osteoarthritis of the midfoot. IMPRESSION: 1. No acute osseous abnormality. Reviewed, dictated and finalized at location A.
--- NOTE | 2022-01-03 16:19 | ED.EXTPRO ---
HPI - Extremity Problem General Chief complaint: Extremity Problem,Nontraumatic Stated complaint: leg pain Time Seen by Provider: 01/03/22 16:09 History of Present Illness HPI Narrative: 56-year-old male on Eliquis for a history of DVTs and history of low back pain, presents to the emergency room for evaluation of bilateral lower extremity discomfort. Patient states that he has been sleeping or lying on the floor for the last 7 days due to low back pain. Patient states that majority of his pain is below both knees. Has noticed increased lower extremity swelling. Related Data Home Medications Medication Instructions Recorded Confirmed buspirone 30 mg tablet 30 mg PO TID 08/14/19 01/10/20 clozapine 100 mg tablet 300 mg HS 08/14/19 01/10/20 divalproex 500 mg tablet,extended 1,000 mg PO HS 08/14/19 01/10/20 release 24 hr simvastatin 20 mg tablet 20 mg PO HS 08/14/19 01/10/20 amlodipine 10 mg tablet 10 mg PO DAILY 01/10/20 01/10/20 Allergies Allergy/AdvReac Type Severity Reaction Status Date / Time hydrocodone Allergy Unknown Verified 01/03/22 16:48 [From Panlor (hydrocodone-acetamin)] nortriptyline AdvReac Unknown Vomiting Verified 01/03/22 16:48 Review of Systems Review of Systems: CONSTITUTIONAL: Denies fever, chills, or sweats. EYES: Denies visual changes, redness, or discharge. ENT: Denies rhinorrhea, congestion, sore throat, or otalgia. CARDIOVASCULAR: Denies chest pain, palpitations, or edema. RESPIRATORY: Denies cough or dyspnea. GASTROINTESTINAL: Denies abdominal pain, nausea, vomiting, or diarrhea. GENITOURINARY: Denies dysuria or hematuria. SKIN: Denies rash or itching. MUSCULOSKELETAL: Reports bilateral lower extremity pain NEUROLOGIC: Denies headache, numbness, dizziness, or weakness. PSYCHIATRIC: Denies anxiety or depression. [facility] Past Medical History Medical History Anxiety Chronic anemia Chronic kidney disease, stage 3 Baseline creatinine is between 1.7 and 1.90. Chronic lower back pain He frequently sees his chiropractor, which offers him a lot of benefit. Diet-controlled type 2 diabetes mellitus Dyslipidemia Essential hypertension Obstructive sleep apnea No longer using CPAP after weight loss. Schizoaffective disorder Surgical History Surgical History History of tonsillectomy and adenoidectomy Family History Family History Other Unknown family medical history Social History Social History Social History: Surrogate decision maker: macy Mchugh. Code status: Full code. Smoking status: Never smoker Alcohol intake: former Substance use: never Additional living arrangements comments: Lives in his own apartment in [place]. He has no children and has never . He is adopted. Additional occupation/education comments: Disabled. Gender identity (if verbalized by the patient): Male Spiritual care concerns: Yes (Father Juan Simons, Father Daniel Vlaadez) Exam Narrative: GENERAL: Well-appearing, well-nourished, no physical limitations, and in no acute distress. HEAD: Normocephalic, atraumatic. EYES: Conjunctivae normal, PERRLA and EOMI. CHEST: Clear to auscultation. No respiratory distress. No wheezes rales or rhonchi. HEART: Regular rate and rhythm. No murmur heard. Normal peripheral pulses. BACK:No cervical/thoracic/lumbar tenderness, step-offs, bony abnormality; FROM EXTREMITIES: Normal range of motion. Nonpitting edema bilateral ankles. No clubbing or cyanosis SKIN: Warm, dry, no rash. No noted wounds NEURO: No focal deficits. Alert and oriented x3. MAEW. CN's II-XI intact bilaterally, PSYCH: Cooperative. Normal mood and affect. Course Vital Signs Vital signs: Vital Signs Temperature 36.9 C 01/03/22 14:33
--- NOTE | 2022-01-03 16:47 | PC.NURSE ---
pt unable to urinate at this time
[2022-01-03 17:06] LABS: Basophils Percent Auto 0.4 % (0.2-1.2); Eosinophils Percent Auto 0.4 % (0-4.4); Hematocrit 41.7 % (42.0-52.0); Hemoglobin 13.4 g/dL (14.0-18.0); Immature Granulocyte Absolute 0.06 K/mm3 (0.00-0.031); Immature Granulocyte Percent A 0.6 % (0-0.5); Lymphocytes Absolute Auto 1.63 K/mm3 (0.9-3.2); Lymphocytes Percent Auto 16.9 % (18.3-44.2); Mean Corpuscular HGB Conc 32.1 g/dl (32-36); Mean Corpuscular Hemoglobin 30.2 pg (26-34); Mean Corpuscular Volume 93.9 fl (80-100); Mean Platelet Volume 9.6 fl (7.4-10.4); Monocytes Absolute Auto 1.1 K/mm3 (0.1-0.6); Monocytes Percent Auto 11.8 % (2.6-8.5); Neutrophils Absolute Auto 6.7 K/mm3 (1.3-6.7); Neutrophils Percent Auto 69.9 % (45.5-73.1); Platelet Count Result 315 k/mm3 (150-375); Red Blood Count 4.44 M/mm3 (4.6-6.20); Red Cell Distribution Width 13.1 % (11.5-14.5); White Blood Count 9.6 K/mm3 (4.5-10.0)
[2022-01-03 17:10] LABS: Anion Gap 18 mmol/L (8-16); Blood Urea Nitrogen 41 mg/dL (9-20); Calcium 10.6 mg/dL (8.4-10.2); Carbon Dioxide 19 mmol/L (22-30); Chloride 102 mmol/L (98-107); Estimated CRCL calculation 58 ml/min; Estimated Glomerular Filt Rate 35; Glucose 145 mg/dL (65-110); Potassium 4.4 mmol/L (3.4-5.0); Sodium 139 mmol/L (137-145)
[2022-01-03 17:14] LABS: INR 1.3; Prothrombin Time 15.7 Seconds (11.1-14.7)
[2022-01-03 17:15] LABS: Partial Thromboplastin Time 39.5 SECONDS (22.3-36.8)
[2022-01-03 17:19] LABS: NT Pro B Type Natriuretic Pept 52 pg/mL (5-100)
--- NOTE | 2022-01-03 17:25 | PC.NURSE ---
ultrasound at bedside doing venous doppler
--- NOTE | 2022-01-03 17:46 | PC.NURSE ---
pt still unable to urinate. refusing straight cath
[2022-01-03 18:47] LABS: Appearance Urine Clear (Clear); Bilirubin Urine 1+ (Negative); Blood Urine Negative (Negative); Color Urine Yellow (Yellow); Glucose Urine UA Negative (Negative); Ketones Urine Trace mg/dL (Negative); Leukocyte Esterase Ur Negative LEU/UL (Negative); Nitrate Urine Negative (Negative); Protein Urine 2+ mg/dL (Negative); Specific Grav Ur 1.025 (1.001-1.035); Urobilinogen Urine 0.2 mg/dL (<2.0); pH Urine 5.5 (5.0-9.0)
[2022-01-03 19:03] LABS: Mucus Urine Rare /lpf; RBC Urine 0-2 /hpf (0-2); Squamous Epithelial Cell Urine Rare /hpf (Few); WBC Urine 0-3 /hpf
[2022-01-03 19:09] LABS: Add Urine Microscopic? YES
[2022-01-03 19:11] LABS: Creatine Kinase 222 U/L (55-170)
[2022-01-03] MEDS: SODIUM CHLORIDE 0.9% IV 1,000 ML 999 ML IV CONT (19:14)
[2022-01-03 19:25] LABS: Lactic Acid Reflex 2.9 mmol/L (0.7-2.0)
--- NOTE | 2022-01-03 21:03 | PM.IMHP ---
H&P: HPI History of Present Illness Date/Time: 01/03/22 21:03 Chief Complaint: leg pain Narrative: This is a 56-year-old male with past medical history significant for morbid obesity, chronic kidney disease, type 2 diabetes mellitus diet controlled, obstructive sleep apnea, hypertension, chronic lower back pain, chronic anemia, generalized anxiety disorder, Schizoaffective disorder. Patient presents to the emergency room due to bilateral lower extremity worsening edema and pain with weight-bearing patient has been laying on the floor for an excessive amount of time. Patient denies any chest pain, PND, orthopnea, however has marked shortness of breath with minimal activity like going 1 flight of stairs and carrying his grocery bags to his apartment denies any lightheadedness, syncope, near syncope, fevers, rigors, chills, cough or sputum production, patient states that has been increasingly painful for him to bear weight on his legs due to the swelling. Preliminary workup was significant for initial CPK of 222 creatinine 2 BUN 40 lactic acid was 2.9. venous Doppler was significant for the vent thrombosis of right popliteal. Review of Systems Review of Systems: bilateral lower extremity pain with weight-bearing, immobilization, low stamina, shortness of breath. Constitutional: Constitutional: Denies chills, Reports fatigue, Denies fever(s), Reports lethargy, Denies malaise, Denies night sweats and Denies weakness Eyes: Eyes: Denies change in vision ENT: Denies dysphagia, Denies vertigo, Denies dizziness and Denies odynophagia Cardiovascular: Cardiovascular: Denies chest pain, Reports pedal edema, Denies irregular heart rhythm, Reports leg edema, Denies lightheadedness, Denies palpitations and Reports dyspnea on exertion Respiratory: Respiratory: Denies chest congestion, Denies cough, Denies excessive phlegm production and Denies wheezing Gastrointestinal: Gastrointestinal: Denies abdominal pain, Denies dyspepsia and Denies heartburn Genitourinary: Genitourinary: Denies dysuria Musculoskeletal: Musculoskeletal: Reports abnormal gait, Reports muscle weakness and Reports other ( Bilateral lower extremity pain) Integumentary/Breasts: Skin/Breast: Denies rash Neurologic: Denies vertigo, Denies dizziness, Denies focal weakness and Denies Sensory deficit (Neuro) Psychiatric: Psychiatric: Reports no additional psychiatric complaints and Reports as per HPI Endocrine: Endocrine: Denies cold intolerance, Denies flushing, Denies heat intolerance, Denies polyphagia and Denies palpitations Hematologic/Lymphatic: Hematologic/Lymphatic: Reports no additional hematologic/lymphatic complaints and Reports as per HPI Allergic/Immunologic: Allergic/Immunologic: Reports no additional allergic/immunologic complaints and Reports as per HPI PMFSH Past Medical History Medical History (Updated 01/04/22 @ 02:44 by Gustabo Hernandez MD) Anxiety Chronic anemia Chronic kidney disease, stage 3 Baseline creatinine is between 1.7 and 1.90. Chronic lower back pain He frequently sees his chiropractor, which offers him a lot of benefit. Diet-controlled type 2 diabetes mellitus Dyslipidemia Essential hypertension Obstructive sleep apnea No longer using CPAP after weight loss. Schizoaffective disorder Surgical History Surgical History History of tonsillectomy and adenoidectomy Family History Family History Other Unknown family medical history Social History Social History Social History: Surrogate decision maker: Manpreet Henderson, nephew. Code status: Full code. Smoking status: Never smoker Alcohol intake: former Substance use: never Substance use type: does not use Additional living arrangements comments: Lives in his own apartment in [place]. He has no c
--- NOTE | 2022-01-03 21:32 | ADMGEN ---
This patient, José Miguel Henderson, was admitted to 3 [facility] Surg Room 309-01 @21:35. Patient/family oriented to hospital policies and general routines including ID bracelet, bed and alarms, visiting hours, pain management, procedures, bathroom and other care routines, personal items, smoking policy, room service/diet, and visiting hours. Information on how to activate the Rapid Response Team has been discussed. Patient/Family are encouraged to report perceived risks to care and to ask questions if they do not understand what they are told or what they should do.
--- NOTE | 2022-01-03 21:55 | PC.NURSE ---
Patient is adopted and unable to tell me any important family history.
[2022-01-03 22:14] LABS: Reflex Lactic Acid Yes or No Add Lactic
[2022-01-03] MEDS: SODIUM CHLORIDE 0.9% IV 1,000 ML 125 ML IV CONT (22:42)
[2022-01-04] VITALS (7 sets, daily range): BP systolic 93–133; BP diastolic 18–78; PULSE 67–87; RESP 14–19; TEMP 36.1–36.6; O2SAT 95–98
--- NOTE | 2022-01-04 | ECHO_ITS ---
Patient Info Name: José Miguel Henderson Age: 56 years : 1965 Gender: Male Ht: 74 in Wt: 315 lbs BSA: 2.79 m2 HR: 97 bpm BP: 140 / 77 mmHg Heart Rhythm: Sinus Rhythm Technical Quality: Fair Exam Date: 01/04/2022 8:18 AM Exam Location: [facility] Patient Status: Inpatient Admit Date: 01/03/2022 Staff Ordering Physician: Gustabo Hernandez MD Correspondence Transcriber: Cristela England RDCS Attending Provider: Gustabo Hernandez MD Referring Physician: David EDGE; Exam Type: CA echo doppler color flow Study Info Indications - venous thrombosis Complete two-dimensional, color flow and Doppler transthoracic echocardiogram is performed with contrast to opacify the left ventricle and to improve the deliniation of the left ventricle endocardial borders. Contrast/Agitated Saline Contrast/Ag. Saline: Definity Amount: 3.00 ml Administered By: Cristela England RDCS Existing IV Access: Yes IV Access Condition: patent with no signs of infiltration Summary 1. Left ventricular chamber dimension is normal. 2. Left ventricular systolic function is normal, estimated at >70%. 3. There is mildly increased left ventricular wall thickness. 4. The left ventricular diastolic function is grade I diastolic dysfunction. 5. Left atrial chamber dimension is mildly enlarged. 6. There is mild mitral valve regurgitation. 7. There is mild tricuspid valve regurgitation. Left Ventricle Left ventricular chamber dimension is normal. Left ventricular systolic function is normal, estimated at >70%. There is mildly increased left ventricular wall thickness. The left ventricular diastolic function is grade I diastolic dysfunction. Right Ventricle Right ventricular chamber dimension is normal. Right ventricular systolic function is normal. Left Atria Left atrial chamber dimension is mildly enlarged. Right Atria Right atrial chamber dimension is normal. Atrial Septum Intact interatrial septum visualized by color flow imaging. Aortic Valve The aortic valve is trileaflet. There is mild aortic valve sclerosis. There is no aortic valve stenosis. There is trace aortic valve regurgitation. Pulmonic Valve The pulmonic valve is normal. There is no pulmonic valve stenosis. There is trace pulmonic regurgitation. Mitral Valve The mitral valve has normal leaflets. There is no mitral valve stenosis. There is mild mitral valve regurgitation. Tricuspid Valve The tricuspid valve leaflets are normal. There is no significant tricuspid valve stenosis. There is mild tricuspid valve regurgitation. No pulmonary hypertension, estimated pulmonary arterial systolic pressure is 29 mmHg. Pericardium/Pleural The pericardium appears normal. There is no pericardial effusion. Inferior Vena Cava Normal inferior vena cava with >50% collapse upon inspiration consistent with normal right atrial pressure, 10 mmHg. Aorta The aortic root size at the sinus of Valsalva is normal. Left Ventricular Outflow Tract Name Value Normal LVOT 2D LVOT Diameter 2.1 cm LVOT Doppler
[2022-01-04] MEDS: SODIUM CHLORIDE 0.9% IV 1,000 ML 125 ML IV CONT (06:23)
[2022-01-04] MEDS: PERFLUTREN LIPID MICROSPHERES 1.5 ML VIAL DILUTED TO 10 ML TOTAL VOLUME IV PUSH (08:51)
--- NOTE | 2022-01-04 08:51 | IVDEFINITY ---
Prior to administration of IV Definity the patient was educated on the risks and benefits of the imaging enhancing agent including potential adverse side effects. The patient verbalized understanding. Allergies were verified. No exclusion criteria were identified and at least one of the following inclusion criteria were met: 1) physician request, 2) patient technically difficult to image (per the [place] [employer] guidelines of two or more segments not discernable within the apical view), or 3) questionable left ventricular function. ?
--- NOTE | 2022-01-04 08:52 | IVDEFINITY ---
Prior to administration of IV Definity the patient was educated on the risks and benefits of the imaging enhancing agent including potential adverse side effects. The patient verbalized understanding. Allergies were verified. No exclusion criteria were identified and at least one of the following inclusion criteria were met: 1) physician request, 2) patient technically difficult to image (per the [place] [employer] Echocardi[employer] guidelines of two or more segments not discernable within the apical view), or 3) questionable left ventricular function. ?
[2022-01-04] MEDS: amLODIPine BESYLATE 5 MG TABLET 10 MG PO (09:21)
[2022-01-04] MEDS: busPIRone HCL 10 MG TABLET 30 MG PO ×2 (09:22→17:30)
[2022-01-04 09:23] LABS: Basophils Percent Auto 0.3 % (0.2-1.2); Eosinophils Absolute Auto 0.1 K/mm3 (0-0.3); Eosinophils Percent Auto 1.1 % (0-4.4); Hematocrit 36.8 % (42.0-52.0); Hemoglobin 11.4 g/dL (14.0-18.0); Immature Granulocyte Absolute 0.03 K/mm3 (0.00-0.031); Immature Granulocyte Percent A 0.5 % (0-0.5); Lymphocytes Absolute Auto 1.18 K/mm3 (0.9-3.2); Lymphocytes Percent Auto 18.8 % (18.3-44.2); Mean Corpuscular Hemoglobin 29.5 pg (26-34); Mean Corpuscular Volume 95.1 fl (80-100); Mean Platelet Volume 9.3 fl (7.4-10.4); Monocytes Absolute Auto 0.7 K/mm3 (0.1-0.6); Monocytes Percent Auto 11.3 % (2.6-8.5); Neutrophils Absolute Auto 4.3 K/mm3 (1.3-6.7); Platelet Count Result 283 k/mm3 (150-375); Red Blood Count 3.87 M/mm3 (4.6-6.20); Red Cell Distribution Width 13.2 % (11.5-14.5); White Blood Count 6.3 K/mm3 (4.5-10.0)
[2022-01-04 09:33] LABS: Alanine Aminotransferase 50 U/L (6-50); Albumin Level 3.6 g/dL (3.5-5.1); Alkaline Phosphatase 101 U/L (38-126); Anion Gap 12 mmol/L (8-16); Aspartate Amino Transferase 75 U/L (17-59); Bilirubin,Total 0.5 mg/dL (0.2-1.3); Blood Urea Nitrogen 43 mg/dL (9-20); Calcium 9.5 mg/dL (8.4-10.2); Carbon Dioxide 21 mmol/L (22-30); Chloride 104 mmol/L (98-107); Estimated CRCL calculation 65 ml/min; Estimated Glomerular Filt Rate 42; Glucose 135 mg/dL (65-110); Potassium 4.3 mmol/L (3.4-5.0); Sodium 137 mmol/L (137-145)
--- NOTE | 2022-01-04 09:48 | PCOTNOTE ---
Attempted to see pt. for occupational therapy evaluation. Pt. awaiting determination for treatment of DVT. Not safe to attempt evaluation until after treatment. Will follow.
--- NOTE | 2022-01-04 12:13 | PM.CNGS ---
Assessment and Plan Assessment and plan (1) Subcutaneous air: Code(s): T79.7XXA - Traumatic subcutaneous emphysema, initial encounter Status: Acute Assessment and Plan: unknown etiology. May be related to chronic immobility. Patient apparently has been sleeping on his floor at home due to back issues. (Noted on or suspected on chest x-ray today). careful examination revealed no signs of cellulitis in the areas of concern. No palpable crepitus is noted. Patient's labs look good other than somewhat elevated CPK. Recommend repeating that later today or tomorrow and good hydration. (I temporarily held his anticoagulation until I could see him. Since there is no surgical issue planned because of his DVT will have him go back on Eliquis. (2) Rhabdomyolysis: Code(s): M62.82 - Rhabdomyolysis Status: Acute Assessment and Plan: unknown etiology. Although by history the patient apparently has been spending a lot time laying on the floor of his apartment due to his back pain. This may have led to some chronic compression and muscle injury leading to the elevated CPK noted on admission. (3) Essential hypertension: Code(s): I10 - Essential (primary) hypertension Status: Acute Assessment and Plan: As per hospital (4) Obstructive sleep apnea: Code(s): G47.33 - Obstructive sleep apnea (adult) (pediatric) Status: Acute Assessment and Plan: Recommend use of CPAP or as per hospitalist. (5) Inability to ambulate due to ankle or foot: Code(s): R26.2 - Difficulty in walking, not elsewhere classified Status: Acute Assessment and Plan: Recommend PT evaluation and increased mobility at least bed to chair. (6) Schizoaffective disorder: Code(s): F25.9 - Schizoaffective disorder, unspecified Status: Acute Assessment and Plan: Continue current medications. as per hospitalist (7) Acute kidney injury superimposed on CKD: Code(s): N17.9 - Acute kidney failure, unspecified; N18.9 - Chronic kidney disease, unspecified Status: Acute Assessment and Plan: Continued rehydration and monitoring. (8) Chronic anticoagulation: Code(s): Z79.01 - manager intermediate (current) use of anticoagulants Status: Acute Assessment and Plan: patient is on Eliquis. He states he has been on it since he was discovered to have a DVT in December of 2019. Plan in view of his clinical situation am not recommending any other further testing other than perhaps repeat labs in the morning. Discussed with Dr. Urszula Cool after my consultation. History of Present Illness Consult details Consult date: 01/04/22 Reason for consult: other ( subcutaneous air noted along lower chest wall) Review of Systems Review of Systems: All systems reviewed & are unremarkable except as noted in HPI and below (HPI) Constitutional: Constitutional: Reports as per HPI, Denies chills and Denies fever(s) Eyes: Eyes: Reports no additional eye complaints ENT: Reports Normal hearing present and Denies dizziness Cardiovascular: Cardiovascular: Reports no additional cardiovascular complaints, Denies chest pain and Denies irregular heart rhythm Comments: history of hypertension and hyperlipidemia Respiratory: Respiratory: Reports no additional respiratory complaints Comments: History of obstructive sleep apnea Gastrointestinal: Gastrointestinal: Reports no additional gastrointestinal complaints, Denies abdominal pain and Denies bloating Genitourinary: Genitourinary: Denies hematuria Musculoskeletal: Musculoskeletal: Reports back pain ( mid to low back) and Reports muscle weakness ( mainly lower extremities) Integumentary/Breasts: Skin/Breast: Reports system reviewed and no additional complaints, except as docu Neurologic: Reports Normal hearing present, Denies Abnormal speech present, Denies confusion and Denies dizziness Comments:
[2022-01-04] MEDS: APIXABAN 5 MG TABLET PO ×2 (12:21→20:18)
--- NOTE | 2022-01-04 14:59 | PCPTNOTE ---
Attempted to see pt. for physical therapy evaluation. pt just started anticoagulants today and medically stable to participate. Will follow
[2022-01-04 15:35] LABS: Creatine Kinase 294 U/L (55-170)
--- NOTE | 2022-01-04 16:38 | PC.NURSE ---
Pt met with Dr. Newman and Dr. Bennett. Pt restarted on Eliquis. Pt had echo done this morning. Pt compliant with medication, but not with keeping arm straight making it hard to administer fluids. Pt resting comfortably. Will continue to monitor pt.
[2022-01-04] MEDS: DIVALPROEX SODIUM ER 250 MG TAB.24H 750 MG PO (20:20)
[2022-01-05] MEDS: ACETAMINOPHEN 325 MG TABLET 650 MG PO (01:01)
--- NOTE | 2022-01-05 01:24 | PHAR ---
PHARMACY VERIFIED HOME MED: *USE FROM HOME* CLOZAPINE 100 MG TABLET - TAKE THREE TABLETS BY MOUTH EVERY NIGHT AT BEDTIME
--- NOTE | 2022-01-05 01:33 | PC.NURSE ---
Pharmacy requested that Clozapine be given from patients home medication stock due to it being non-formulary. Pharmacy verified Clozapine and sent it up without a barcode to scan. Will use document button when administering.
[2022-01-05] MEDS: SODIUM CHLORIDE 0.9% IV 1,000 ML 125 ML IV CONT (05:48)
[2022-01-05 06:00] VITALS: BP 105/62; PULSE 71; RESP 19; TEMP 36.3; O2SAT 98
[2022-01-05 07:16] LABS: Basophils Absolute Auto 0.1 K/mm3 (0.0-0.1); Basophils Percent Auto 0.9 % (0.2-1.2); Eosinophils Absolute Auto 0.2 K/mm3 (0-0.3); Eosinophils Percent Auto 2.8 % (0-4.4); Hemoglobin 11.8 g/dL (14.0-18.0); Immature Granulocyte Absolute 0.02 K/mm3 (0.00-0.031); Immature Granulocyte Percent A 0.4 % (0-0.5); Lymphocytes Absolute Auto 1.79 K/mm3 (0.9-3.2); Lymphocytes Percent Auto 31.5 % (18.3-44.2); Mean Corpuscular HGB Conc 31.9 g/dl (32-36); Mean Corpuscular Hemoglobin 30.3 pg (26-34); Mean Corpuscular Volume 94.9 fl (80-100); Mean Platelet Volume 9.3 fl (7.4-10.4); Monocytes Absolute Auto 0.6 K/mm3 (0.1-0.6); Monocytes Percent Auto 10.2 % (2.6-8.5); Neutrophils Absolute Auto 3.1 K/mm3 (1.3-6.7); Neutrophils Percent Auto 54.2 % (45.5-73.1); Platelet Count Result 308 k/mm3 (150-375); Red Cell Distribution Width 13.2 % (11.5-14.5); White Blood Count 5.7 K/mm3 (4.5-10.0)
[2022-01-05 07:43] LABS: Alanine Aminotransferase 51 U/L (6-50); Albumin Level 3.5 g/dL (3.5-5.1); Alkaline Phosphatase 105 U/L (38-126); Anion Gap 10 mmol/L (8-16); Aspartate Amino Transferase 59 U/L (17-59); Bilirubin,Total 0.4 mg/dL (0.2-1.3); Blood Urea Nitrogen 32 mg/dL (9-20); Calcium 9.8 mg/dL (8.4-10.2); Carbon Dioxide 22 mmol/L (22-30); Chloride 109 mmol/L (98-107); Creatine Kinase 248 U/L (55-170); Estimated CRCL calculation 79 ml/min; Estimated Glomerular Filt Rate 52; Glucose 126 mg/dL (65-110); Potassium 4.3 mmol/L (3.4-5.0); Sodium 141 mmol/L (137-145)
--- NOTE | 2022-01-05 07:44 | PCOTNOTE ---
Attempted OT evaluation this AM. Patient declined at this time due to being too tired and wanting to sleep. Will continue to attempt.
[2022-01-05] MEDS: busPIRone HCL 10 MG TABLET 30 MG PO ×2 (09:39→16:47)
[2022-01-05] MEDS: amLODIPine BESYLATE 5 MG TABLET 10 MG PO (09:39)
[2022-01-05] MEDS: APIXABAN 5 MG TABLET PO ×2 (09:39→21:13)
[2022-01-05 14:54] VITALS: BP 130/87; PULSE 82; RESP 20; TEMP 36.2; O2SAT 99
--- NOTE | 2022-01-05 15:08 | PM.IMPN ---
Progress Note: A&P Assessment and Plan (1) Rhabdomyolysis: Code(s): M62.82 - Rhabdomyolysis Status: Acute (2) Acute kidney injury superimposed on CKD: Code(s): N17.9 - Acute kidney failure, unspecified; N18.9 - Chronic kidney disease, unspecified Status: Acute (3) Subcutaneous air: Code(s): T79.7XXA - Traumatic subcutaneous emphysema, initial encounter Status: Acute (4) Adult failure to thrive: Code(s): R62.7 - Adult failure to thrive Status: Acute (5) Essential hypertension: Code(s): I10 - Essential (primary) hypertension Status: Acute (6) Obstructive sleep apnea: Code(s): G47.33 - Obstructive sleep apnea (adult) (pediatric) Status: Acute (7) Bilateral foot pain: Code(s): M79.671 - Pain in right foot; M79.672 - Pain in left foot Status: Acute (8) Chronic lower back pain: Qualifiers: Back pain laterality: unspecified Sciatica presence: without sciatica Qualified Code(s): M54.5 - Low back pain; G89.29 - Other chronic pain Code(s): M54.5 - Low back pain; G89.29 - Other chronic pain Status: Acute (9) Schizoaffective disorder: Code(s): F25.9 - Schizoaffective disorder, unspecified Status: Acute Plan Doubt patient has rhabdomyolysis given the mildly elevated total CK and the fact he has no blood or red blood cells in his urine. Mildly elevated total CK probably related to immobility. Discussed with surgery about the possible subcutaneous air. [place] false finding with no evidence on exam for cellulitis or other concerning findings. No need for further imaging. Patient is complaining of ankle pain. We will proceed with x-rays to exclude occult fractures. He has been compliant with his Eliquis. Review of the chart shows that he has known popliteal DVTs and actually appears that be improving. Renal function has returned to baseline. Will stop IV fluids. If x-rays are negative, patient can be transferred to half-way facility for further therapy. Xrays showng acute transverse fracture of the medial malleolus. Bedrest with ortho consult. Subjective Date/time seen: 01/05/22 15:08 Interval history: 56yo male with ALISON, schizoaffective disorder and DM here for leg pain. Assuming care. Chart reviewed. Patient feels tired. Been eating well. He has been compliant with Eliquis. Patient is complaining of bilateral ankle and foot pain. He denies any falls or trauma. No ankle twisting. He is anxious about being home alone. Exam Narrative: AF 97.3 105/62 71 19 98% ra Gen - NARD Chest - CTA bilaterally, nml RR CV - RRR S1/S2 Abd - Soft, NT/ND, Positive BS Ext - trace pedal edema. pain at right and left medial malleolus. normal passive ROM without pain Psych - Nml mood and affect Skin - Warm and dry Objective Data Vital Signs Vital Signs: Vital Signs - 24 hr 01/04/22 22:24 01/04/22 20:00 01/04/22 22:00 Temperature 97 F L Pulse Rate 68 67 Respiratory Rate 16 18 Blood Pressure 93/57 L Pulse Oximetry 96 95 Oxygen Delivery CPAP Room Air Fraction of Inspired Oxygen 01/05/22 06:00 01/05/22 10:40 01/05/22 09:29 Temperature 97.3 F L Pulse Rate 71 Respiratory Rate 19 Blood Pressure 105/62 Pulse Oximetry 98 Oxygen Delivery Room Air Room Air Fraction of Inspired Oxygen 21 Intake/Output Intake/Output: Intake & Output 01/02/22 01/03/22 01/04/22 01/05/22 23:59 23:59 23:59 23:59 Intake Total 1000 1440 1580 Output Total 350 Balance 1000 1090 1580 Meds/Results Medications: Active Medications Generic Name Dose Route Start Last Admin Trade Name Clydeq PRN Reason Stop Dose Admin Acetaminophen 650 mg 01/05/22 00:36 01/05/22 01:01 Acetaminophen 325 Mg Tablet PO 650 mg Q6H PRN Administration Mild Pain (1-3) or Fever Amlodipine Besylate 10 mg 01/04/22 09:00 01/05/22 09:39 Amlodipine Besylate 5 Mg Tablet PO 10
[2022-01-05] MEDS: DIVALPROEX SODIUM ER 250 MG TAB.24H 750 MG PO (21:13)
[2022-01-05 21:40] VITALS: O2SAT 98
[2022-01-05 22:00] VITALS: BP 125/82; PULSE 73; RESP 18; TEMP 36.7; O2SAT 98
[2022-01-06 06:00] VITALS: BP 129/86; PULSE 78; RESP 16; TEMP 36.4; O2SAT 98
--- NOTE | 2022-01-06 09:29 | PM.IMPN ---
Progress Note: A&P Assessment and Plan (1) Closed malleolar fracture: Code(s): S82.899A - Other fracture of unspecified lower leg, initial encounter for closed fracture Status: Acute (2) Acute kidney injury superimposed on CKD: Code(s): N17.9 - Acute kidney failure, unspecified; N18.9 - Chronic kidney disease, unspecified Status: Acute (3) Subcutaneous air: Code(s): T79.7XXA - Traumatic subcutaneous emphysema, initial encounter Status: Acute (4) Adult failure to thrive: Code(s): R62.7 - Adult failure to thrive Status: Acute (5) Essential hypertension: Code(s): I10 - Essential (primary) hypertension Status: Acute (6) Obstructive sleep apnea: Code(s): G47.33 - Obstructive sleep apnea (adult) (pediatric) Status: Acute (7) Chronic lower back pain: Qualifiers: Back pain laterality: unspecified Sciatica presence: without sciatica Qualified Code(s): M54.5 - Low back pain; G89.29 - Other chronic pain Code(s): M54.5 - Low back pain; G89.29 - Other chronic pain Status: Acute (8) Schizoaffective disorder: Code(s): F25.9 - Schizoaffective disorder, unspecified Status: Acute Plan Doubt patient has rhabdomyolysis given the mildly elevated total CK and the fact he has no blood or red blood cells in his urine. Mildly elevated total CK probably related to immobility. Discussed with surgery about the possible subcutaneous air. [place] false finding with no evidence on exam for cellulitis or other concerning findings. No need for further imaging. Patient is complaining of ankle pain so we proceeded with x-rays which showed right acute transverse fx of the medial malleolus. Ortho consulted. He has been compliant with his Eliquis. Review of the chart shows that he has known bilateral popliteal DVTs and actually now just noted on the right on this admission. No need for increased loading dose of Eliquis. Renal function has returned to baseline. Awaiting ortho input. Plan to [facility] to [facility] for further therapy once he is ready for discharge. Subjective Date/time seen: 01/06/22 09:29 Interval history: 56yo male with ALISON, schizoaffective disorder and DM here for leg pain. Sleeping well. No CP or SOB. He provides vague hx but states he falls frequently. Most recent was about 1 week ago climbing steps. He has a hx of ankle injury after falls but usually resolves after a few days. Exam Narrative: AF 97.5 129/86 78 16 98% ra Gen - NARD Chest - CTA bilaterally, nml RR CV - RRR S1/S2 Abd - Soft, NT/ND, Positive BS Ext - trace bilateral pedal edema Psych - Nml mood and affect Skin - Warm and dry Objective Data Vital Signs Vital Signs: Vital Signs - 24 hr 01/05/22 10:40 01/05/22 14:54 01/05/22 22:00 Temperature 97.1 F L 98.1 F Pulse Rate 82 73 Respiratory Rate 20 18 Blood Pressure 130/87 125/82 Pulse Oximetry 99 98 Oxygen Delivery Room Air 01/05/22 20:00 01/05/22 21:40 01/06/22 06:00 Temperature 97.5 F L Pulse Rate 78 Respiratory Rate 16 Blood Pressure 129/86 Pulse Oximetry 98 98 Oxygen Delivery Room Air Room Air Intake/Output Intake/Output: Intake & Output 01/03/22 01/04/22 01/05/22 01/06/22 23:59 23:59 23:59 23:59 Intake Total 1000 1440 3080 1022 Output Total 350 1100 1500 Balance 1000 1090 1979 -268 Meds/Results Medications: Active Medications Generic Name Dose Route Start Last Admin Trade Name Freq PRN Reason Stop Dose Admin Acetaminophen 650 mg 01/05/22 00:36 01/05/22 01:01 Acetaminophen 325 Mg Tablet PO 650 mg Q6H PRN Administration Mild Pain (1-3) or Fever Amlodipine Besylate 10 mg 01/04/22 09:00 01/05/22 09:39 Amlodipine Besylate 5 Mg Tablet PO 10 mg DAILY UDAY Administration Apixaban 5 mg 01/04/22 09:00 01/05/22 21:13 Apixaban 5 Mg Tablet PO 5 mg Q12HR UDAY Administration Buspirone HCl 30 mg 12/20
[2022-01-06] MEDS: APIXABAN 5 MG TABLET PO ×2 (09:30→20:44)
[2022-01-06] MEDS: busPIRone HCL 10 MG TABLET 30 MG PO ×2 (09:30→17:28)
[2022-01-06] MEDS: amLODIPine BESYLATE 5 MG TABLET 10 MG PO (09:30)
[2022-01-06 11:20] VITALS: BMI 40.4
--- NOTE | 2022-01-06 13:00 | PCPTNOTE ---
Patient needs a ortho consult and WB status entered prior to completing a PT re-evaluation and continue with plan of care. Will follow.
--- NOTE | 2022-01-06 13:38 | PCOTNOTE ---
Patient needs a ortho consult and WB status entered prior to completing a OT re-evaluation and continue with plan of care. Will follow.
[2022-01-06 13:53] VITALS: BP 141/91; PULSE 73; RESP 20; TEMP 36.4; O2SAT 97
[2022-01-06] MEDS: DIVALPROEX SODIUM ER 250 MG TAB.24H 750 MG PO (20:44)
[2022-01-06 22:00] VITALS: BP 123/88; PULSE 75; RESP 18; TEMP 37; O2SAT 97
[2022-01-07 05:56] VITALS: BP 146/85; PULSE 78; RESP 18; TEMP 36.5; O2SAT 98
[2022-01-07 08:00] VITALS: PULSE 78; RESP 18; O2SAT 98
[2022-01-07] MEDS: amLODIPine BESYLATE 5 MG TABLET 10 MG PO (09:25)
[2022-01-07] MEDS: APIXABAN 5 MG TABLET PO (09:26)
[2022-01-07] MEDS: busPIRone HCL 10 MG TABLET 30 MG PO ×2 (09:26→17:59)
--- NOTE | 2022-01-07 12:16 | PM.CNOR ---
Assessment and Plan Assessment and plan (1) Closed malleolar fracture: Qualifiers: Encounter type: initial encounter Laterality: right Qualified Code(s): S82.891A - Other fracture of right lower leg, initial encounter for closed fracture Code(s): S82.899A - Other fracture of unspecified lower leg, initial encounter for closed fracture Status: Acute Assessment and Plan: asked to see patient for possible fracture of the right ankle and bilateral ankle pain. Patient does not really have a history of any specific trauma but thinks that he may have twisted the right ankle while going up stairs 1 to 2 weeks ago. Radiographs reviewed. There is a questionable lucency of the distal aspect of the medial malleolus on the right ankle with no displacement. He is completely nontender there on exam, no swelling or erythema. No evidence of any trauma or injury. I think this represents a radiographic abnormality and not a true fracture. He does have some tenderness over the anterolateral ankle consistent with mild sprain of the anterior talofibular ligament. The left ankle radiographs are negative and left ankle exam is benign. Patient indicated for conservative treatment with Tylenol as needed. Agree with PT/OT to assist with transfers, ambulation and weight-bearing. He is weight-bearing as tolerated on both right and left lower extremity. He may be discharged from the hospital from an orthopedic standpoint once he is medically cleared. Follow-up for any other concerns or problems. (2) Bilateral ankle pain: Qualifiers: Chronicity: acute Qualified Code(s): M25.571 - Pain in right ankle and joints of right foot; M25.572 - Pain in left ankle and joints of left foot Code(s): M25.571 - Pain in right ankle and joints of right foot; M25.572 - Pain in left ankle and joints of left foot Status: Acute (3) Right ankle sprain: Qualifiers: Encounter type: initial encounter Involved ligament of ankle: anterior talofibular ligament Qualified Code(s): S93.491A - Sprain of other ligament of right ankle, initial encounter Code(s): S93.401A - Sprain of unspecified ligament of right ankle, initial encounter Status: Acute History of Present Illness HPI Consult date: 01/07/22 Requesting physician: Sebastián Sandoval MD Consult reason: fracture ( medial malleolus right ankle) Chief complaint: BARON Narrative: 56-year-old gentleman admitted to the hospital for weakness and bilateral lower extremity pain. Patient denies any specific injury but states that about a week ago he was going up stairs and maybe twisted the right ankle. He complains of pain both ankles right greater than left over the anterior and lateral aspect. Denies medial ankle pain. States that he has difficulty mobilizing, ambulating and bearing weight. Review of Systems Review of Systems: All systems reviewed & are unremarkable except as noted in HPI and below (HPI) Constitutional: Constitutional: Reports as per HPI, Denies chills and Denies fever(s) Eyes: Eyes: Reports no additional eye complaints ENT: Reports Normal hearing present and Denies dizziness Cardiovascular: Cardiovascular: Reports no additional cardiovascular complaints, Denies chest pain and Denies irregular heart rhythm Comments: history of hypertension and hyperlipidemia Respiratory: Respiratory: Reports no additional respiratory complaints Comments: History of obstructive sleep apnea Gastrointestinal: Gastrointestinal: Reports no additional gastrointestinal complaints, Denies abdominal pain and Denies bloating Genitourinary: Genitourinary: Denies hematuria Musculoskeletal: Musculoskeletal: Reports back pain ( mid to low back) and Reports muscle weakness ( mainly lower extremities) Integumentary/Breasts: Skin/Breast: Reports system reviewed and no additional complaints, except as docu Neurologic: Reports Normal hearing present, Denies Abnor
[2022-01-07 14:00] VITALS: BP 140/82; PULSE 67; RESP 18; TEMP 36.1; O2SAT 99
--- NOTE | 2022-01-07 14:18 | PM.DS ---
DS: Admitting Diagnosis Discharge Date 01/07/22 Admitting Diagnosis Leg pain DS: Discharge Diagnosis Discharge Diagnosis (1) Closed malleolar fracture: Qualifiers: Encounter type: initial encounter Laterality: right Qualified Code(s): S82.891A - Other fracture of right lower leg, initial encounter for closed fracture Code(s): S82.899A - Other fracture of unspecified lower leg, initial encounter for closed fracture Status: Acute (2) Acute kidney injury superimposed on CKD: Code(s): N17.9 - Acute kidney failure, unspecified; N18.9 - Chronic kidney disease, unspecified Status: Acute (3) Subcutaneous air: Code(s): T79.7XXA - Traumatic subcutaneous emphysema, initial encounter Status: Acute (4) Adult failure to thrive: Code(s): R62.7 - Adult failure to thrive Status: Acute (5) Essential hypertension: Code(s): I10 - Essential (primary) hypertension Status: Acute (6) Obstructive sleep apnea: Code(s): G47.33 - Obstructive sleep apnea (adult) (pediatric) Status: Acute (7) Chronic lower back pain: Qualifiers: Back pain laterality: unspecified Sciatica presence: without sciatica Qualified Code(s): M54.5 - Low back pain; G89.29 - Other chronic pain Code(s): M54.5 - Low back pain; G89.29 - Other chronic pain Status: Acute (8) Schizoaffective disorder: Code(s): F25.9 - Schizoaffective disorder, unspecified Status: Acute DS: Summary Hospital Course Reason for hospitalization: 56yo male with ALISON, schizoaffective disorder and DM here for leg pain. Please see H&P for details Hospital Course: Doubt patient has rhabdomyolysis given the mildly elevated total CK and the fact he has no blood or red blood cells in his urine. Mildly elevated total CK probably related to immobility. Discussed with surgery about the possible subcutaneous air. [place] false finding with no evidence on exam for cellulitis or other concerning findings. No need for further imaging. Patient was complaining of ankle pain so we proceeded with x-rays which showed right acute transverse fx of the medial malleolus. Ortho consulted but felt this was a false positive image. He has been compliant with his Eliquis. Review of the chart shows that he has known bilateral popliteal DVTs and actually now just noted on the right popliteal DVT on this admission. No need for loading dose of Eliquis. Echo noted with EF 70% and Grade I diastolic dysfunction. BARON noted on admission with Cr to 2.0. Renal function has returned to baseline. He worked with therapy. Plan for [facility] facility placement. Patient overall did well and was able to be discharged on 01/07/22. Status at Discharge Cognitive/behavioral status at discharge: Stable Time Spent with Patient Time attestation: Total time spent providing and/or coordinating discharge services: 34 minutes Time spent: Greater than 30 minutes Exam Narrative: AF 97.7 146/85 78 18 98% ra Gen - NARD Chest - CTA bilaterally, nml RR CV - RRR S1/S2 Abd - Soft, NT/ND, Positive BS Ext - no pedal edema Psych - Nml mood and affect Skin - Warm and dry Discharge Plan Discharge Attending physician on discharge: Sebastián Sandoval Consulting providers: Sanjay Newman ; Bert Iniguez Discharging Clinician: Sebastián Sandoval Anticipated Discharge Date/Time: 01/07/22 14:24 Patient Disposition: SNF Activity: as tolerated Diet: diabetic Discharge Instructions: Please check glucose before meals and before bed. Record for doctor's review. Avoid NSAIDs (ibuprofen, naproxen, Aleve). Tylenol is safe to take. Follow-up with the doctor at the facility. Thank you for using [facility] for your [facility] care needs. Patient Instructions: Apixaban (By mouth) Stand Alone Forms: General Discharge Information Follow-up/Referrals: Jose Christensen MD [Primary Care Provid
[2022-01-07 15:32] LABS: EDCOVIDSCREEN Negative (Negative)
== END 2022-01-07 19:30 | DRG 683 ==
LOC: ANHED 19:04 → ANH3MEDSUR 21:07
PROVIDERS: Hospitalist; Surgery; Admitting Provider Internal Medicine; Emergency Provider Nurse Practitioner Family; PCP Emergency Medicine; Visit Provider Internal Medicine
DX: N17.9 Acute kidney failure, unspecified (principal); T79.7XXA Traumatic subcutaneous emphysema, initial encounter; Z68.41 Body mass index [BMI] 40.0-44.9, adult; I82.433 Acute embolism and thrombosis of popliteal vein, bilateral; S82.54XA Nondisplaced fracture of medial malleolus of right tibia, initial encounter for closed fracture; S93.491A Sprain of other ligament of right ankle, initial encounter; E66.01 Morbid (severe) obesity due to excess calories; E11.22 Type 2 diabetes mellitus with diabetic chronic kidney disease; I12.9 Hypertensive chronic kidney disease with stage 1 through stage 4 chronic kidney disease, or unspecified chronic kidney disease; N18.30 Chronic kidney disease, stage 3 unspecified; F25.9 Schizoaffective disorder, unspecified; G47.33 Obstructive sleep apnea (adult) (pediatric); E78.5 Hyperlipidemia, unspecified; M54.50 Low back pain, unspecified; G89.29 Other chronic pain; M25.572 Pain in left ankle and joints of left foot; M25.571 Pain in right ankle and joints of right foot; D64.9 Anemia, unspecified; R62.7 Adult failure to thrive; F41.1 Generalized anxiety disorder; X58.XXXA Exposure to other specified factors, initial encounter; Z20.822 Contact with and (suspected) exposure to COVID-19; Z79.01 Long term (current) use of anticoagulants; Z79.899 Other long term (current) drug therapy; Z91.81 History of falling
CPT/HCPCS: 36415; 71045; 73600; 80048; 80053; 81001; 82550; 83605; 83880; 85025; 85610; 85730; 87426; 93970; 94660; 96361; 96374; 96375; 97161; 97166; 99285; A9270; C8929; C9803; G0378; J7030; Q9957

== ENCOUNTER 2022-08-29 12:49 | Outpatient (CLI) | payer MEDICARE, MEDICAID, SELFPAY ==
--- NOTE | ~2022-08-29 | XR_ITS ---
XR cervical spine 4-5V 08/29/2022 13:45 Indication: Bilateral hand tingling. Procedure: 4 views of the cervical spine Comparison: No prior studies for comparison. Findings: There are prominent ventral bridging osteophytes at C2-3 through C6-7. There is disc narrow ing at C4-5, C5-6 and C6-7. No prevertebral soft tissue swelling. There is multilevel uncinate hypert rophy at C4-5 through C6-7. Lung apices are normal. Odontoid process is normal. Impression: 1: Moderate cervical spondylosis. Reviewed, dictated and finalized at location B. Impression: 1: Moderate cervical spondylosis.
== END 2022-08-29 12:50 | disposition home or self-care (01) ==
PROVIDERS: PCP Emergency Medicine; Visit Provider Emergency Medicine
DX: M47.812 Spondylosis without myelopathy or radiculopathy, cervical region (principal)
CPT/HCPCS: 72050

== ENCOUNTER 2023-05-08 16:25 | Emergency (ER) | payer MEDICARE, MEDICAID, SELFPAY ==
--- NOTE | ~2023-05-08 | XR_ITS ---
EXAMINATION: XR chest 2V 05/08/2023 18:01 INDICATION: Mid chest pain. Hypertension. PROCEDURE: 2 view chest COMPARISON: Comparison to multiple prior studies sequentially, with oldest reviewed study dated 11/01. FINDINGS: The lungs are clear. The cardiomediastinal silhouette is within normal limits. There are no pleural effusions. There is no pneumothorax suspected. IMPRESSION: 1: NO ACUTE CARDIOPULMONARY DISEASE. Reviewed, dictated and finalized at location A. NSIC ARTIST
--- NOTE | 2023-05-08 16:30 | ECG_ITS ---
Measurements Intervals [place] Rate: 91 P: 21 NM: 128 QRS: 7 QRSD: 126 T: 48 QT: 351 QTc: 434 Interpretive Statements SINUS RHYTHM RIGHT BUNDLE BRANCH BLOCK [120+ ms QRS DURATION, UPRIGHT V1, 40+ ms S IN I/aVL/V4/V5/V6] ABNORMAL ECG NO PREVIOUS ECG AVAILABLE FOR COMPARISON Electronically Signed On 05-08-2023 17:30:40 MEDICAL ASSISTANT SUPERVISOR by Braeden Villafuerte M.D.
[2023-05-08 16:36] VITALS: BP 155/79; PULSE 92; RESP 18; TEMP 36.4; O2SAT 98
[2023-05-08 16:47] LABS: Basophils Percent Auto 0.5 % (0.2-1.2); Eosinophils Absolute Auto 0.3 K/mm3 (0-0.3); Eosinophils Percent Auto 3.7 % (0-4.4); Hematocrit 44.7 % (42.0-52.0); Immature Granulocyte Absolute 0.03 K/mm3 (0.00-0.031); Immature Granulocyte Percent A 0.3 % (0-0.5); Lymphocytes Absolute Auto 1.98 K/mm3 (0.9-3.2); Lymphocytes Percent Auto 22.4 % (18.3-44.2); Mean Corpuscular HGB Conc 31.3 g/dl (32-36); Mean Corpuscular Hemoglobin 29.9 pg (26-34); Mean Corpuscular Volume 95.5 fl (80-100); Mean Platelet Volume 9.4 fl (7.4-10.4); Monocytes Absolute Auto 0.8 K/mm3 (0.1-0.6); Monocytes Percent Auto 8.8 % (2.6-8.5); Neutrophils Absolute Auto 5.7 K/mm3 (1.3-6.7); Neutrophils Percent Auto 64.3 % (45.5-73.1); Platelet Count Result 212 k/mm3 (150-375); Red Blood Count 4.68 M/mm3 (4.6-6.20); Red Cell Distribution Width 13.5 % (11.5-14.5); White Blood Count 8.8 K/mm3 (4.5-10.0)
[2023-05-08 16:54] LABS: Alanine Aminotransferase 15 U/L (6-50); Albumin Level 4.3 g/dL (3.5-5.1); Alkaline Phosphatase 101 U/L (38-126); Anion Gap 9 mmol/L (8-16); Aspartate Amino Transferase 21 U/L (17-59); Bilirubin,Total 0.4 mg/dL (0.2-1.3); Blood Urea Nitrogen 33 mg/dL (9-20); Calcium 9.8 mg/dL (8.4-10.2); Carbon Dioxide 26 mmol/L (22-30); Chloride 107 mmol/L (98-107); Estimated CRCL calculation 62 ml/min; Estimated Glomerular Filt Rate 39; Glucose 102 mg/dL (65-110); Lipase 127 U/L (23-300); Potassium 4.9 mmol/L (3.4-5.0); Sodium 142 mmol/L (137-145)
[2023-05-08 17:01] LABS: INR 1.1; Partial Thromboplastin Time 30.5 SECONDS (22.3-36.8); Prothrombin Time 14.6 Seconds (11.1-14.7)
[2023-05-08 17:05] LABS: Troponin I < 0.012 ng/mL (0.000-0.034)
--- NOTE | 2023-05-08 19:30 | ECG_ITS ---
Measurements Intervals [place] Rate: 87 P: 14 TN: 133 QRS: -1 QRSD: 134 T: 49 QT: 373 QTc: 450 Interpretive Statements SINUS RHYTHM RIGHT BUNDLE BRANCH BLOCK [120+ ms QRS DURATION, UPRIGHT V1, 40+ ms S IN I/aVL/V4/V5/V6] LATERAL MYOCARDIAL INFARCTION , OF INDETERMINATE AGE [40+ ms Q WAVE AND/OR ST/T ABNORMALITY IN I/aVL/V5/V6] COMPARED TO ECG 05/08/2023 16:36:11 NO SIGNIFICANT CHANGES Electronically Signed On 05-09-2023 13:28:41 NURSING HOME PHYSICIAN by Chente Richter M.D.
[2023-05-08 19:44] VITALS: BP 178/95; PULSE 86; RESP 18; O2SAT 100
[2023-05-08 20:30] LABS: Troponin I < 0.012 ng/mL (0.000-0.034)
[2023-05-08 23:31] VITALS: BP 154/95; PULSE 87; PULSE 90; RESP 14; O2SAT 98
[2023-05-09 00:17] VITALS: BP 157/99; PULSE 84; RESP 12; O2SAT 99
[2023-05-09 00:35] LABS: Troponin I < 0.012 ng/mL (0.000-0.034)
--- NOTE | 2023-05-09 01:11 | ED.GENADULT ---
HPI - General Adult General Chief complaint: Chest Pain Stated complaint: chest pain Time Seen by Provider: 05/09/23 00:29 History of Present Illness HPI narrative: patient 57-year-old gentleman who presents emergency department chief complaint of chest pain. Patient reports that for some time he has had pain in his chest the patient states this has been ongoing for months and reports that he talk to his psychiatrist who did an outpatient EKG and finally today they got the results of the EKG and decided since he has been having chest discomfort he should come to the emergency department. The patient today states that he is currently not having pain in his chest and reports that he has been in the emergency department for some period of time. Related Data Home Medications Medication Instructions Recorded Confirmed buspirone 30 mg tablet 30 mg PO BID 08/14/19 01/03/22 clozapine 100 mg tablet 300 mg PO HS 08/14/19 01/03/22 simvastatin 20 mg tablet 20 mg PO HS 08/14/19 01/03/22 amlodipine 10 mg tablet 10 mg PO DAILY 01/03/22 01/03/22 divalproex 250 mg tablet,extended 750 mg PO HS 01/03/22 01/03/22 release 24 hr lisinopril 10 mg tablet 10 mg PO DAILY 01/03/22 01/03/22 oxybutynin chloride 15 mg 15 mg PO DAILY 01/03/22 01/03/22 tablet,extended release 24 hr cholecalciferol (vitamin D3) 10 10 mcg PO DAILY 03/28/23 mcg/mL (400 unit/mL) oral drops metformin 500 mg tablet 500 mg PO DAILY 03/28/23 Allergies Allergy/AdvReac Type Severity Reaction Status Date / Time hydrocodone Allergy Unknown Verified 05/08/23 23:33 [From Panlor (hydrocodone-acetamin)] nortriptyline AdvReac Unknown Vomiting Verified 05/08/23 23:33 Review of Systems Review of Systems: A 10 system review of systems was completed on the patient and is negative except for what is stated in the HPI. Nursing and ancillary documentation was reviewed. [facility] Past Medical History Medical History Anxiety Bilateral ankle pain Chronic anemia Chronic kidney disease, stage 3 Baseline creatinine is between 1.7 and 1.90. Chronic lower back pain He frequently sees his chiropractor, which offers him a lot of benefit. Diet-controlled type 2 diabetes mellitus Dyslipidemia Essential hypertension Obstructive sleep apnea No longer using CPAP after weight loss. Right ankle sprain Schizoaffective disorder Surgical History Surgical History History of tonsillectomy and adenoidectomy Family History Family History Other Unknown family medical history Social History Social History Social History: Surrogate decision maker: Manpreet Moran, nephew. Code status: Full code. Smoking status: Never smoker Alcohol intake: former Substance use: never Substance use type: does not use Lack of Transportation: No Lack of Food: Sometimes True Current Housing: I Have Housing Concerned About Future Housing: No Difficulty Paying Gas/Electric Bills: No Difficulty Paying for Meds: No Currently Unemployed: No Education: Bachelor's Degree Difficulty w/ Childcare or Family Care: No Additional living arrangements comments: Lives in his own apartment in [place]. He has no children and has never . He is adopted. Additional occupation/education comments: Disabled. Gender identity (if verbalized by the patient): Male Spiritual care concerns: No Exam Narrative: GENERAL: Well-appearing, well-nourished, and in no acute distress. HEAD: Normocephalic, atraumatic. EYES: PERRLA and EOMI. ENT: Nares clear, no rhinorrhea or epistaxis. Mucous membranes moist. NECK: Supple. CHEST: Clear to auscultation. No respiratory distress. HEART: Regular rate and rhythm. No murmur
[2023-05-09 01:39] VITALS: BP 176/101; PULSE 81; RESP 18; O2SAT 100
--- NOTE | 2023-05-09 10:22 | ECG_ITS ---
Measurements Intervals [place] Rate: 81 P: 26 MD: 162 QRS: -1 QRSD: 128 T: 47 QT: 388 QTc: 452 Interpretive Statements SINUS RHYTHM POSSIBLE LEFT ATRIAL ENLARGEMENT [-0.1mV P WAVE IN V1/V2] RIGHT BUNDLE BRANCH BLOCK COMPARED TO ECG 05/08/2023 19:34:50 NO SIGNIFICANT CHANGES Electronically Signed On 05-09-2023 13:33:20 DIRECTOR OF FOOD AND NUTRITION SERVICES by Chente Richter M.D.
== END 2023-05-09 01:42 | disposition home or self-care (01) ==
PROVIDERS: Emergency Medicine; Emergency Provider Emergency Medicine; PCP Emergency Medicine
DX: R07.89 Other chest pain (principal); F41.9 Anxiety disorder, unspecified; E78.5 Hyperlipidemia, unspecified; I12.9 Hypertensive chronic kidney disease with stage 1 through stage 4 chronic kidney disease, or unspecified chronic kidney disease; N18.30 Chronic kidney disease, stage 3 unspecified; G47.33 Obstructive sleep apnea (adult) (pediatric); F25.9 Schizoaffective disorder, unspecified
CPT/HCPCS: 36415; 71046; 80053; 83690; 84484; 85025; 85610; 85730; 93005; 99284